=== PATIENT | female | born 1935 | race Caucasian/White ===

== ENCOUNTER → 2017-06-23 | Outpatient (CLI) | payer MEDICARE, OTHER ==
[~2017-06-23] MED LIST: AZIT250 PO; CALGLU500 PO; DULERA 200 MCG/13 GM INH; FLUSAL1005 IH; FLUSAL2505 IH; GUAI600T33 PO; HORMONE REPLACEMENT; HYDCHL12.5 PO; LISI20 PO; MULVITMINF PO; NICO14TP TOP; ONDA4 PO; ONDA8ODT MM; OXYACE5T PO; PRED10 PO; PROG100 PO; RXONDA4ODT MM; SPIHYD PO; TIOT18 INH; [UNRECOGNIZED DRUG - CODE] PO
== END | disposition home or self-care (01) ==
LOC: PLD 13:35 → LAB SHORT 13:35
DX: D48.5 Neoplasm of uncertain behavior of skin (principal)
CPT/HCPCS: 88305

== ENCOUNTER 2019-12-12 06:52 | Day surgery (SDC) | payer MEDICARE, OTHER ==
[~2019-12-12] VITALS: Ht 165.1 cm; Wt 92.5 kg
[2019-12-12] MEDS ORDERED: Ventolin/Prove6.7 GM INH (07:41)
[2019-12-12] MEDS ORDERED: ASPIR 8181 M1 PO (07:41)
[2019-12-12] MEDS ORDERED: FISH OIL 1,2001 EAC1 PO (07:42)
[2019-12-12] MEDS ORDERED: PRESERVISION A1 EACH PO (07:43)
== END 2019-12-12 08:46 | disposition home or self-care (01) ==
LOC: ORSCSDS 06:52
PROVIDERS: Ophthalmology
PROC: 08RJ3JZ Replacement of Right Lens with Synthetic Substitute, Percutaneous Approach (ICD-10-PCS; principal; 2019-12-12 08:00)
DX: H25.11 Age-related nuclear cataract, right eye (principal); I10 Essential (primary) hypertension; I25.10 Atherosclerotic heart disease of native coronary artery without angina pectoris; Z79.899 Other long term (current) drug therapy; E66.9 Obesity, unspecified; Z68.33 Body mass index [BMI] 33.0-33.9, adult
CPT/HCPCS: J2250; J3010; J7040; J7120; V2632

== ENCOUNTER → 2022-05-13 | Outpatient (CLI) | payer MEDICARE, OTHER ==
[~2022-05-13] MED LIST changes: +ASPIR 8181 M1 PO; +FISH OIL 1,2001 EAC1 PO; +ONDA4ODT MM; +PRESERVISION A1 EACH PO; +Ventolin/Prove6.7 GM INH
== END | disposition home or self-care (01) ==
DX: N39.0 Urinary tract infection, site not specified (principal); R10.9 Unspecified abdominal pain

== ENCOUNTER 2022-05-15 03:44 | Inpatient (IN) | payer MEDICARE, OTHER ==
[~2022-05-15] VITALS: Ht 160 cm; Wt 77.1 kg
[~2022-05-15 03:44] MED LIST changes: -ONDA4ODT MM
[2022-05-15 05:56] LABS: BASOPHILS ABSOLUTE AUTO 0.04 K/mm3 (0.00-0.23); BASOPHILS PERCENT AUTO 0 % (0-2); EOSINOPHILS ABSOLUTE AUTO 0.02 K/mm3 (0.00-0.68); EOSINOPHILS PERCENT AUTO 0 % (0-6); Hematocrit 38.8 % (33.0-51.0); IMMATURE GRAN ABSOLUTE AUTO 0.05 K/mm3 (0.00-0.10); IMMATURE GRAN PERCENT AUTO 1 % (0-1); LYMPHOCYTES ABSOLUTE AUTO 0.89 K/mm3 (0.84-5.20); LYMPHOCYTES PERCENT AUTO 9 % (21-46); MONOCYTES ABSOLUTE AUTO 0.86 K/mm3 (0.16-1.47); MONOCYTES PERCENT AUTO 9 % (4-13); Mean Corpuscular HGB 35.2 pg (26.0-34.0); Mean Corpuscular HGB Conc 33.5 g/dL (31.5-36.5); Mean Corpuscular Volume 105 fL (80-100); Mean Platelet Volume 10.4 fL (9.1-12.4); NEUTROPHILS ABSOLUTE AUTO 7.77 K/mm3 (1.96-9.15); NEUTROPHILS PERCENT AUTO 81 % (41-73); Platelet Count 353 K/mm3 (150-400); RDW Coefficient Variation 12.7 % (11.7-14.2); Red Blood Cell Count 3.69 M/mm3 (3.80-5.20); White Blood Cell Count 9.63 K/mm3 (4.00-11.30)
[2022-05-15 06:21] LABS: Albumin, Blood 3.6 g/dL (3.4-5.0); Albumin/Globulin Ratio 1.1 (0.8-1.8); Bilirubin, Total 0.5 mg/dL (0.1-1.0); Bun/Creatinine Ratio 38.3 (12.0-20.0); Calcium, Blood 10.3 mg/dL (8.5-10.1); Creatinine, Blood 1.07 mg/dL (0.40-1.00); Globulin, Blood 3.2 g/dL (2.2-4.0); Potassium, Blood 4.4 mmol/L (3.5-5.5); Total Protein, Blood 6.8 g/dL (6.4-8.2)
[2022-05-15 07:34] LABS: Source, Urine Clean Catch
[2022-05-15 07:41] LABS: Appearance, Urine Clear (Clear); Blood, Urine Neg (Neg); Color, Urine Yellow (P-Yellow); Glucose Qualitative, Urine Neg (Neg); Ketones, Urine 2+ (Neg); Leukocyte Esterase, Urine 1+ (Neg); Nitrite, Urine Neg (Neg); Protein, Urine 1+ (Neg); Specific Gravity, Urine 1.015 (1.003-1.022); Urobilinogen, Urine 1+ (Normal)
[2022-05-15 07:50] LABS: Bilirubin, Urine 1+ (Neg)
[2022-05-15 07:52] LABS: Bacteria Mod /hpf; Red Blood Cells, Urine 0-2 /hpf (0-2); Renal Epithelial Few /hpf (0-Rare); Squamous Epithelial Cells Mod /hpf (Few)
[2022-05-15] MEDS ORDERED: ONDA4ODT MM (13:03)
--- NOTE | 2022-05-15 13:09 | NUR ---
THE PATIENT WAS BROUGHT TO DAY SURGERY FROM THE ER FOR HER PROCEDURE. Surgical site prepped with 2% Chlorhexidine cloth wipe. History, Chart, Medications and Allergies reviewed before start of procedure.Lungs clear T/O to Auscultation. Patient confirms NPO status and agrees with scheduled surgery. Pre-Op teaching done. Pt verbalizes understanding. Patient States Post-Procedure ride home has been arranged.
--- NOTE | 2022-05-15 14:25 | NUR ---
PT RESTING STILL HAS A GRIMACE ON HER FACE, VSS PT GETTING PAINFUL AGAIN AWAITING DR ORTIZ AND DR POOLE
--- NOTE | 2022-05-15 15:32 | NUR ---
05/15/22 1532 Ginny Dumont PATIENT IS ON SCHEDULED ABX
--- NOTE | 2022-05-15 17:22 | NUR ---
PT AWAKE AND ALERT, VITALS STABLE, PT DOES HAVE AN IRREGULAR HEART RATE, DR. ORTIZ NOTIFIED AND HE CAME AND ASSESSED PATIENT. HE REQUESTED THAT THE PATIENT BE SEEN BY HOSPITALIST. THIS NURSE WILL NOTIFY FLOOR NURSE.
--- NOTE | 2022-05-15 19:48 | NUR ---
SHIFT SUMMARY PT ARRIVED TO THE FLOOR FROM PACU AT APPROXIMATELY 1800, POD0 INCARCERATED HERNIA REPAIR, A/OX4, VSS, DENIES PAIN. PT SETTLED IN HER ROOM AND IV ABX STARTED. REPORT GIVEN TO TINA SIMON.
[2022-05-16 04:38] LABS: BASOPHILS ABSOLUTE AUTO 0.03 K/mm3 (0.00-0.23); BASOPHILS PERCENT AUTO 0 % (0-2); EOSINOPHILS PERCENT AUTO 0 % (0-6); Hematocrit 32.2 % (33.0-51.0); Hemoglobin 10.8 g/dL (11.5-16.0); IMMATURE GRAN ABSOLUTE AUTO 0.02 K/mm3 (0.00-0.10); IMMATURE GRAN PERCENT AUTO 0 % (0-1); LYMPHOCYTES ABSOLUTE AUTO 0.89 K/mm3 (0.84-5.20); LYMPHOCYTES PERCENT AUTO 13 % (21-46); MONOCYTES ABSOLUTE AUTO 1.09 K/mm3 (0.16-1.47); MONOCYTES PERCENT AUTO 16 % (4-13); Mean Corpuscular HGB 36.2 pg (26.0-34.0); Mean Corpuscular HGB Conc 33.5 g/dL (31.5-36.5); Mean Corpuscular Volume 108 fL (80-100); Mean Platelet Volume 10.3 fL (9.1-12.4); NEUTROPHILS ABSOLUTE AUTO 4.82 K/mm3 (1.96-9.15); NEUTROPHILS PERCENT AUTO 70 % (41-73); Platelet Count 279 K/mm3 (150-400); RDW Coefficient Variation 13.2 % (11.7-14.2); RDW Standard Deviation 51.9 fL (35.1-46.3); Red Blood Cell Count 2.98 M/mm3 (3.80-5.20); White Blood Cell Count 6.85 K/mm3 (4.00-11.30)
[2022-05-16 04:55] LABS: Bun/Creatinine Ratio 47.6 (12.0-20.0); Calcium, Blood 9.2 mg/dL (8.5-10.1); Creatinine, Blood 1.03 mg/dL (0.40-1.00); Potassium, Blood 4.7 mmol/L (3.5-5.5)
--- NOTE | 2022-05-16 05:33 | NUR ---
SHIFT SUMMARY A/O X4- POD1 INGUINAL HERNIA REPAIR W/ SB RESEC- GAUZE DRESSING ON INCISION C/D/I. VITAL SIGNS STABLE. VOIDING WELL. TOLERATING CLEAR LIQ DIET, NO N/V REPORTED. TELE MONITOR IN PLACE. WILL CONTINUE TO MONITOR AND REPORT TO ONCOMING RN.
--- NOTE | 2022-05-16 16:09 | NUR ---
1450 NOTIFIED BY PCU OF PT HEARTRATE UP TO A FEW SECONDS OF A RATE OF 150. CHECKED PATIENT AND SHE REPORTS BILAT JAW PAIN AND INDIGESTION, STAT EKG COMPLETED WHICH SHOWS A FIBRILLATION. SPOKE WITH DR BREWSTER AND ORDERS RECEIVED
[2022-05-16 16:21] LABS: Creatine Kinase MB 5.6 ng/mL (0.0-3.6); Creatine Kinase MB Index 2.3 (0.0-4.0)
--- NOTE | 2022-05-16 16:35 | NUR ---
1630 ASSISTED TO BR PT GRIMACING WITH MOVEMENT. PT DECLINES OFFER OF PAIN MEDS
--- NOTE | 2022-05-16 17:15 | NUR ---
ANTACID GIVEN FOR INDIGESTION. PT DENIES ANY FURTHER JAW TIGHTNESS OR DISCOMORT. PT REPORTS SHE HAS INDIGESTION OCCASSIONALLY AND WHAT SHE IS EXPERIENCING NOW FEELS THE SAME
--- NOTE | 2022-05-16 17:59 | NUR ---
PT REPORTS HEARTBURN SOMEWHAT BETTER AFTER ANTACID GIVEN. DENIES FUTHER JAW PAIN OR DISCOMFORT. HEART RATE STAYING LESS THAN 100BPM PER TELEMETRY. REMAINS IN A FIB. RLQ ABD DRESSING DRY AND INTACT. PT GRIMACES WITH MOVEMENT, DECLINES OFFERS OF PAIN MEDS. DAILY SMALL AMOUNTS OF FULL LIQUID DIET, AMBULATING TO BR TO VOID. PT REPORTS IS PASSING FLATUS
[2022-05-17 04:44] LABS: BASOPHILS ABSOLUTE AUTO 0.03 K/mm3 (0.00-0.23); BASOPHILS PERCENT AUTO 1 % (0-2); EOSINOPHILS ABSOLUTE AUTO 0.27 K/mm3 (0.00-0.68); EOSINOPHILS PERCENT AUTO 4 % (0-6); Hematocrit 32.4 % (33.0-51.0); Hemoglobin 10.8 g/dL (11.5-16.0); IMMATURE GRAN ABSOLUTE AUTO 0.01 K/mm3 (0.00-0.10); IMMATURE GRAN PERCENT AUTO 0 % (0-1); LYMPHOCYTES ABSOLUTE AUTO 1.72 K/mm3 (0.84-5.20); LYMPHOCYTES PERCENT AUTO 26 % (21-46); MONOCYTES ABSOLUTE AUTO 0.94 K/mm3 (0.16-1.47); MONOCYTES PERCENT AUTO 14 % (4-13); Mean Corpuscular HGB 35.6 pg (26.0-34.0); Mean Corpuscular HGB Conc 33.3 g/dL (31.5-36.5); Mean Corpuscular Volume 107 fL (80-100); Mean Platelet Volume 10.1 fL (9.1-12.4); NEUTROPHILS ABSOLUTE AUTO 3.62 K/mm3 (1.96-9.15); NEUTROPHILS PERCENT AUTO 55 % (41-73); Platelet Count 281 K/mm3 (150-400); RDW Standard Deviation 50.9 fL (35.1-46.3); Red Blood Cell Count 3.03 M/mm3 (3.80-5.20); White Blood Cell Count 6.59 K/mm3 (4.00-11.30)
[2022-05-17 05:01] LABS: Bun/Creatinine Ratio 58.8 (12.0-20.0); Calcium, Blood 9.1 mg/dL (8.5-10.1); Creatinine, Blood 0.71 mg/dL (0.40-1.00); Potassium, Blood 4.2 mmol/L (3.5-5.5)
--- NOTE | 2022-05-17 05:55 | NUR ---
SHIFT SUMMARY A/O X4 THROUGHOUT SHIFT- POD1 R INGUINAL HERNIA REPAIR W/ SMALL BOWEL RESEC. INCISION IN R GROIN AREA, DRESSING C/D/I, NO PAIN REPORTED THROUGHOUT SHIFT. TELE IN PLACE- WHEN I CALLED TO CONFIRM RYTHYM THIS AM, HUMAN RESOURCES TRAINER REPORTED THAT PT CONVERTED FROM AFIB TO NSR ON 05/16/22 AT APPROX 2050 AND HAS REMAINED NSR THROUGHOUT THE SHIFT. TOLERATING A FULL LIQUID DIET, NO REPORT OF N/V. VOIDING WELL AND PASSING DARK LIQUID STOOL. NO ACUTE CHANGES THROUGHOUT SHIFT, WILL CONTINUE TO MONITOR AND REPORT TO ONCOMING RN.
--- NOTE | 2022-05-17 17:59 | NUR ---
SHIFT SUMMARY PATIENT ALERT AND ORIENTED THROUGHOUT SHIFT. TOLERATING ADA DIET AND LIQUIDS. SBA WITH FWW UP TO BATHROOM, SPENT MOST OF DAY UP IN RECLINER WITH BLE ELEV. RIGHT GROIN SITE WITH GAUZE AND TEGADERM C/D/I. DECLINES NEED FOR PAIN MEDS. ROUTINE ABX IV, OTHERWISE SALINE LOCKED. VOIDING WELL AND BM THIS SHIFT. DIET ADVANCED TO ADA REGULAR FOR DINNER. ABD TENDER WITH MOVEMENT. PLAN TO CONTINUE TO MOBILIZE AND ADVANCE DIET UNTIL READY FOR DISCHARGE.
--- NOTE | 2022-05-18 04:31 | NUR ---
SHIFT SUMMARY NO ACUTE CHANGES THROUGHOUT SHIFT. A/O X4- POD2 R INGUINAL HERNIA REPAIR W/ SB RESECTION- DRESSING C/D/I. TOLERATING REG DIET. VOIDING AND PASSING STOOL. NO PAIN REPORTED THROUGHOUT SHIFT. VITAL SIGNS STABLE. WILL CONTINUE TO MONITOR AND REPORT TO ONCOMING RN.
--- NOTE | 2022-05-18 17:59 | NUR ---
SHIFT SUMMARY PT HAS DONE WELL TODAY. PLEASANT & UPBEAT. UP IN CHAIR T/O DAY. UP EASILY TO USE RESTROOM. PASSING GAS & TOLERATING DIET WELL.
--- NOTE | 2022-05-18 22:16 | NUR ---
CALLED HOSPITALIST AT APPROX 2210 TO INQUIRE ABOUT PT NOT HAVING IV ACCESS W/ HAVING ACTIVE TELE ORDER. RANJIT ORDERED TO DC TELE AT THIS TIME.
--- NOTE | 2022-05-19 06:00 | NUR ---
SHIFT SUMMARY A/O X4- SBA TO BATHROOM. POD3 R HERNIA REPAIR W/ SMALL BOWEL RESECTION- DRESSING REMAINS C/D/I. VOIDING AND PASSING STOOL. TOLERATED PO INTAKE. NO REPORT OF PAIN THROUGHOUT SHIFT. VITAL SIGNS STABLE. WILL CONTINUE TO MONITOR AND REPORT TO ONCOMING RN.
[2022-05-19 08:08] LABS: BASOPHILS ABSOLUTE AUTO 0.03 K/mm3 (0.00-0.23); BASOPHILS PERCENT AUTO 0 % (0-2); EOSINOPHILS PERCENT AUTO 7 % (0-6); Hemoglobin 11.7 g/dL (11.5-16.0); IMMATURE GRAN ABSOLUTE AUTO 0.06 K/mm3 (0.00-0.10); IMMATURE GRAN PERCENT AUTO 1 % (0-1); LYMPHOCYTES PERCENT AUTO 32 % (21-46); MONOCYTES ABSOLUTE AUTO 0.63 K/mm3 (0.16-1.47); MONOCYTES PERCENT AUTO 9 % (4-13); Mean Corpuscular HGB 34.6 pg (26.0-34.0); Mean Corpuscular HGB Conc 32.5 g/dL (31.5-36.5); Mean Corpuscular Volume 107 fL (80-100); Mean Platelet Volume 10.2 fL (9.1-12.4); NEUTROPHILS ABSOLUTE AUTO 3.63 K/mm3 (1.96-9.15); NEUTROPHILS PERCENT AUTO 51 % (41-73); Platelet Count 303 K/mm3 (150-400); RDW Coefficient Variation 12.8 % (11.7-14.2); RDW Standard Deviation 50.3 fL (35.1-46.3); Red Blood Cell Count 3.38 M/mm3 (3.80-5.20); White Blood Cell Count 7.15 K/mm3 (4.00-11.30)
[2022-05-19 08:30] LABS: Albumin, Blood 2.9 g/dL (3.4-5.0); Bilirubin, Total 0.3 mg/dL (0.1-1.0); Bun/Creatinine Ratio 34.5 (12.0-20.0); Calcium, Blood 9.4 mg/dL (8.5-10.1); Creatinine, Blood 0.52 mg/dL (0.40-1.00); Globulin, Blood 2.9 g/dL (2.2-4.0); Potassium, Blood 4.1 mmol/L (3.5-5.5); Total Protein, Blood 5.8 g/dL (6.4-8.2)
--- NOTE | 2022-05-19 13:45 | NUR ---
DISCHARGE ESCORTED OUT VIA WC. DENIES PAIN. TOLERATING DIET. PASSING GAS. AMBULATING WELL. NO NEW SCRIPTS; CONFIRMED w/ DR CUETO. HAPPY TO BE DC'ING HOME w/ FRIEND TO STAY THE NIGHT.
== END 2022-05-19 13:25 | disposition home or self-care (01) | DRG 330 ==
LOC: ER 03:44 → SURS 09:02 → ERHOLD 09:02 → SURS 17:56
PROVIDERS: Family Medicine; Student in an Organized Health Care Education/Training Program; Surgery; ADMIT Hospitalist
PROC: 0YQ70ZZ Repair Right Femoral Region, Open Approach (ICD-10-PCS; principal; 2022-05-15 15:00)
PROC: 0DB80ZZ Excision of Small Intestine, Open Approach (ICD-10-PCS; 2022-05-15 15:00)
DX: K41.30 Unilateral femoral hernia, with obstruction, without gangrene, not specified as recurrent (principal); D62 Acute posthemorrhagic anemia; N17.9 Acute kidney failure, unspecified; N39.0 Urinary tract infection, site not specified; N94.9 Unspecified condition associated with female genital organs and menstrual cycle; I10 Essential (primary) hypertension; J44.9 Chronic obstructive pulmonary disease, unspecified; E78.5 Hyperlipidemia, unspecified; G20 Parkinson's disease; Z79.82 Long term (current) use of aspirin; Z79.899 Other long term (current) drug therapy; Z96.653 Presence of artificial knee joint, bilateral; Z90.49 Acquired absence of other specified parts of digestive tract; Z98.890 Other specified postprocedural states; E55.9 Vitamin D deficiency, unspecified; Z28.21 Immunization not carried out because of patient refusal; B96.20 Unspecified Escherichia coli [E. coli] as the cause of diseases classified elsewhere
CPT/HCPCS: 36415; 74018; 74177; 80048; 80053; 81001; 82550; 82553; 82947; 83690; 84484; 85025; 87086; 88307; 93005; 93010; 94640; 94664; 94760; A9270; C1781; J0330; J0696; J1100; J1160; J1170; J1650; J1885; J2405; J2704; J2710; J2795; J3010; J7030; J7120; Q9967

== ENCOUNTER 2023-01-28 08:50 | Emergency (ER) | payer MEDICARE, OTHER ==
[~2023-01-28] VITALS: Ht 160 cm; Wt 68.0 kg
[~2023-01-28 08:50] MED LIST changes: +ONDA4ODT MM
[2023-01-28 09:07] VITALS: BP 132/47
[2023-01-28] MEDS ORDERED: PROG100 PO (09:24)
[2023-01-28] MEDS ORDERED: CARBIDOPA-LEVO1 EA15 PO (09:24)
[2023-01-28] MEDS ORDERED: CLIMARA1 EACH TOP (09:24)
[2023-01-28] MEDS ORDERED: CELE100 PO (09:25)
[2023-01-28] MEDS ORDERED: METOPROLOL SUCC25 MG PO (09:25)
== END 2023-01-28 10:41 | disposition home or self-care (01) ==
LOC: ER 08:50
DX: M25.551 Pain in right hip (principal); W06.XXXA Fall from bed, initial encounter; Z88.8 Allergy status to other drugs, medicaments and biological substances; Z79.899 Other long term (current) drug therapy; Z79.82 Long term (current) use of aspirin; E78.5 Hyperlipidemia, unspecified; I10 Essential (primary) hypertension; J44.9 Chronic obstructive pulmonary disease, unspecified; M19.90 Unspecified osteoarthritis, unspecified site
CPT/HCPCS: 73502; 99283-25

== ENCOUNTER 2023-07-28 14:57 | Emergency (ER) | payer MEDICARE, OTHER ==
[~2023-07-28] VITALS: Ht 162.6 cm; Wt 70.3 kg
[~2023-07-28 14:57] MED LIST changes: +CARBIDOPA-LEVO1 EA15 PO; +CELE100 PO; +CLIMARA1 EACH TOP; +METOPROLOL SUCC25 MG PO
[2023-07-28 15:03] VITALS: BP 124/74
[2023-07-28] MEDS ORDERED: Ketorolac Tromethamine 30mg Vial IM ONE (17:05)
== END 2023-07-28 17:23 | disposition home or self-care (01) ==
LOC: ER 14:57
DX: M54.50 Low back pain, unspecified (principal); G89.29 Other chronic pain; Z87.891 Personal history of nicotine dependence; I10 Essential (primary) hypertension; G20.A1 Parkinson's disease without dyskinesia, without mention of fluctuations; Z79.82 Long term (current) use of aspirin; Z79.899 Other long term (current) drug therapy; Z88.5 Allergy status to narcotic agent; Z91.048 Other nonmedicinal substance allergy status
CPT/HCPCS: 99282

== ENCOUNTER 2023-08-08 11:13 | Emergency (ER) | payer MEDICARE, OTHER ==
[~2023-08-08] VITALS: Ht 162.6 cm; Wt 70.3 kg
[2023-08-08] MEDS ORDERED: Ondansetron HCl 2 MG / ML 2ML Vial IV ONE (11:35)
[2023-08-08] MEDS ORDERED: Morphine Sulfate 4 MG/1 ML Injection IV ONE (11:35)
[2023-08-08 11:45] LABS: Source, Urine Straight Cath
[2023-08-08 11:48] LABS: Bilirubin, Urine Neg (Neg); Blood, Urine 1+ (Neg); Glucose Qualitative, Urine Neg (Neg); Ketones, Urine 3+ (Neg); Leukocyte Esterase, Urine 2+ (Neg); Nitrite, Urine Neg (Neg); Protein, Urine Neg (Neg); Urobilinogen, Urine NORM (Normal)
[2023-08-08] MEDS ORDERED: Lisinopril2.5 MG (11:50)
[2023-08-08 12:05] LABS: Appearance, Urine Clear (Clear); Color, Urine Yellow (P-Yellow)
[2023-08-08 12:05] LABS: BASOPHILS ABSOLUTE AUTO 0.04 K/mm3 (0.00-0.23); BASOPHILS PERCENT AUTO 1 % (0-2); EOSINOPHILS ABSOLUTE AUTO 0.13 K/mm3 (0.00-0.68); EOSINOPHILS PERCENT AUTO 2 % (0-6); Hemoglobin 12.9 g/dL (11.5-16.0); IMMATURE GRAN ABSOLUTE AUTO 0.03 K/mm3 (0.00-0.10); IMMATURE GRAN PERCENT AUTO 0 % (0-1); LYMPHOCYTES ABSOLUTE AUTO 1.01 K/mm3 (0.84-5.20); LYMPHOCYTES PERCENT AUTO 14 % (21-46); MONOCYTES ABSOLUTE AUTO 0.61 K/mm3 (0.16-1.47); MONOCYTES PERCENT AUTO 9 % (4-13); Mean Corpuscular HGB 34.8 pg (26.0-34.0); Mean Corpuscular HGB Conc 33.1 g/dL (31.5-36.5); Mean Corpuscular Volume 105 fL (80-100); Mean Platelet Volume 10.2 fL (9.1-12.4); NEUTROPHILS ABSOLUTE AUTO 5.36 K/mm3 (1.96-9.15); NEUTROPHILS PERCENT AUTO 75 % (41-73); Platelet Count 310 K/mm3 (150-400); RDW Coefficient Variation 12.6 % (11.7-14.2); RDW Standard Deviation 49.1 fL (35.1-46.3); Red Blood Cell Count 3.71 M/mm3 (3.80-5.20); White Blood Cell Count 7.18 K/mm3 (4.00-11.30)
[2023-08-08 12:10] LABS: Albumin, Blood 3.5 g/dL (3.4-5.0); Albumin/Globulin Ratio 1.1 (0.8-1.8); Bilirubin, Total 0.8 mg/dL (0.1-1.0); Bun/Creatinine Ratio 70.9 (12.0-20.0); Calcium, Blood 10.3 mg/dL (8.5-10.1); Creatinine, Blood 0.51 mg/dL (0.40-1.00); Globulin, Blood 3.1 g/dL (2.2-4.0); Potassium, Blood 3.7 mmol/L (3.5-5.5); Total Protein, Blood 6.6 g/dL (6.4-8.2)
[2023-08-08 12:10] LABS: Bacteria Few /hpf; Red Blood Cells, Urine 0-2 /hpf (0-2); Squamous Epithelial Cells Mod /hpf (Few); Yeast/Fungi Urine Few /hpf
[2023-08-08] MEDS ORDERED: Cephalexin Monohydrate 500 MG Cap PO ONE (13:25)
[2023-08-08] MEDS ORDERED: Levodopa/Carbidopa 100 / 25 MG Tab PO SCH (16:00)
[2023-08-08] MEDS ORDERED: OxyCODONE 5 mg/Acetamin 325 mg TABLET PO ONE (22:55)
[2023-08-08] MEDS ORDERED: Methocarbamol 500 MG Tab PO ONE (23:00)
[2023-08-09] MEDS ORDERED: Acetaminophen 500 MG Tab PO ONE (05:00)
[2023-08-09] MEDS ORDERED: Methocarbamol 500 MG Tab PO ONE (05:00)
[2023-08-09] MEDS ORDERED: Prozac20 MG PO (07:08)
[2023-08-09] MEDS ORDERED: ESTRADIOL0.5 MG PO (08:13)
[2023-08-09] MEDS ORDERED: Cephalexin Monohydrate 500 MG Cap PO SCH (09:00)
[2023-08-09] MEDS ORDERED: Lisinopril 5 MG Tab PO SCH (09:00)
[2023-08-09] MEDS ORDERED: Celecoxib 100 MG Cap PO SCH (09:00)
[2023-08-09] MEDS ORDERED: Aspirin 81 MG TabEC PO SCH (09:00)
[2023-08-09] MEDS ORDERED: Metoprolol Succinate 25 MG TABCR PO SCH (09:00)
[2023-08-09] MEDS ORDERED: TRAM50 PO (11:31)
[2023-08-09 12:27] VITALS: BP 100/51
[2023-08-09] MEDS ORDERED: Acetaminophen 500 MG Tab PO PRN (13:40)
[2023-08-09] MEDS ORDERED: Cephalexin Monohydrate 500 MG Cap PO ONE (15:35)
[2023-08-09] MEDS ORDERED: CEPH500 PO (15:35)
== END 2023-08-09 16:51 | disposition home or self-care (01) ==
LOC: ER 11:13
PROVIDERS: Emergency Medicine
DX: M54.9 Dorsalgia, unspecified (principal); N39.0 Urinary tract infection, site not specified; G20.A1 Parkinson's disease without dyskinesia, without mention of fluctuations; Z60.2 Problems related to living alone; I10 Essential (primary) hypertension; G89.29 Other chronic pain; Z91.81 History of falling; Z88.5 Allergy status to narcotic agent; Z91.048 Other nonmedicinal substance allergy status; Z79.890 Hormone replacement therapy; Z79.899 Other long term (current) drug therapy; Z79.51 Long term (current) use of inhaled steroids; Z79.82 Long term (current) use of aspirin; Z87.891 Personal history of nicotine dependence
CPT/HCPCS: 72100; 72170; 80053; 81001; 85025; 97110; 97161; 97530; 99284-25; A9270; J2270; J2405

== ENCOUNTER → 2024-03-24 | Outpatient (CLI) | payer MEDICARE, OTHER ==
[~2024-03-24] MED LIST changes: +CEPH500 PO; +ESTRADIOL0.5 MG PO; +Lisinopril2.5 MG; +Prozac20 MG PO; +TRAM50 PO
[2024-03-24 13:26] LABS: Source, Urine Voided
[2024-03-24 14:36] LABS: Appearance, Urine Hazy (Clear); Bilirubin, Urine Neg (Neg); Blood, Urine Neg (Neg); Color, Urine Yellow (P-Yellow); Glucose Qualitative, Urine Neg (Neg); Ketones, Urine 1+ (Neg); Leukocyte Esterase, Urine 2+ (Neg); Nitrite, Urine Neg (Neg); Protein, Urine Neg (Neg); Specific Gravity, Urine 1.015 (1.003-1.022); Urobilinogen, Urine NORM (Normal); pH, Urine 6.5 (5.0-8.0)
[2024-03-24 15:14] LABS: Amorphous Light (0-Heavy); Bacteria Many /hpf; Calcium Oxalate Crystals Few /hpf; Mucus Light (0-Heavy); Red Blood Cells, Urine 0-2 /hpf (0-2); Squamous Epithelial Cells Many /hpf (Few)
== END ==
LOC: LAB 13:24 → LAB SHORT 13:24
PROVIDERS: Family Medicine
DX: N39.0 Urinary tract infection, site not specified (principal)
CPT/HCPCS: 81001; 87086

== ENCOUNTER → 2024-04-17 | Outpatient (CLI) | payer MEDICARE, OTHER ==
[2024-04-17 13:57] LABS: Source, Urine Clean Catch
[2024-04-17 15:14] LABS: Appearance, Urine Cloudy (Clear); Bilirubin, Urine Neg (Neg); Blood, Urine 1+ (Neg); Color, Urine Amber (P-Yellow); Glucose Qualitative, Urine Neg (Neg); Ketones, Urine 2+ (Neg); Leukocyte Esterase, Urine Neg (Neg); Nitrite, Urine Neg (Neg); Protein, Urine 1+ (Neg); Specific Gravity, Urine 1.025 (1.003-1.022); Urobilinogen, Urine 1+ (Normal)
[2024-04-17 15:45] LABS: Amorphous Heavy (0-Heavy); Bacteria Rare /hpf; Squamous Epithelial Cells Few /hpf (Few); White Blood Cells, Urine 0-2 /hpf (0-5)
== END ==
LOC: LAB SHORT 12:40 → LAB 12:40
PROVIDERS: Family Medicine
DX: R30.0 Dysuria (principal)
CPT/HCPCS: 81001

== ENCOUNTER → 2024-05-25 | Outpatient (CLI) | payer MEDICARE, OTHER | LOC: LAB SHORT 14:20 → LAB 14:20 | DX: N39.0 Urinary tract infection, site not specified (principal) | CPT/HCPCS: 87077; 87086; 87186 ==

== ENCOUNTER → 2024-06-09 | Outpatient (CLI) | payer MEDICARE, OTHER ==
[2024-06-09 11:06] LABS: Source, Urine Voided
[2024-06-09 14:05] LABS: Appearance, Urine Hazy (Clear); Bilirubin, Urine Neg (Neg); Blood, Urine 1+ (Neg); Color, Urine Yellow (P-Yellow); Glucose Qualitative, Urine Neg (Neg); Ketones, Urine 1+ (Neg); Leukocyte Esterase, Urine 2+ (Neg); Nitrite, Urine Neg (Neg); Protein, Urine 1+ (Neg); Urobilinogen, Urine 1+ (Normal)
[2024-06-09 14:28] LABS: Amorphous Light (0-Heavy); Bacteria Many /hpf; Calcium Oxalate Crystals Mod /hpf; Mucus Heavy (0-Heavy); Red Blood Cells, Urine 0-2 /hpf (0-2); Squamous Epithelial Cells Many /hpf (Few)
== END | disposition home or self-care (01) ==
LOC: LAB 11:03 → LAB SHORT 11:03
PROVIDERS: Family Medicine
DX: R39.9 Unspecified symptoms and signs involving the genitourinary system (principal)
CPT/HCPCS: 81001; 87086

== ENCOUNTER → 2024-08-08 | Outpatient (CLI) | payer MEDICARE, OTHER ==
[2024-08-08 16:48] LABS: Source, Urine Voided
[2024-08-08 17:57] LABS: Appearance, Urine Hazy (Clear); Bilirubin, Urine Neg (Neg); Blood, Urine Neg (Neg); Color, Urine Yellow (P-Yellow); Glucose Qualitative, Urine Neg (Neg); Ketones, Urine 1+ (Neg); Leukocyte Esterase, Urine 2+ (Neg); Nitrite, Urine Neg (Neg); Protein, Urine Neg (Neg); Urobilinogen, Urine NORM (Normal)
[2024-08-08 18:15] LABS: Red Blood Cells, Urine 0-2 /hpf (0-2); Squamous Epithelial Cells Few /hpf (Few); Yeast/Fungi Urine Mod /hpf
[2024-08-08 18:16] LABS: Bacteria Mod /hpf; Calcium Oxalate Crystals Mod /hpf
== END ==
LOC: LAB 16:46 → LAB SHORT 16:46
PROVIDERS: Family Medicine
DX: N39.0 Urinary tract infection, site not specified (principal)
CPT/HCPCS: 81001; 87086

== ENCOUNTER 2024-08-20 11:00 | Emergency (ER) | payer MEDICARE, OTHER ==
[~2024-08-20] VITALS: Ht 162.6 cm; Wt 68.0 kg
[2024-08-20 11:50] LABS: Source, Urine Clean Catch
[2024-08-20 11:53] LABS: BASOPHILS ABSOLUTE AUTO 0.05 K/mm3 (0.00-0.23); BASOPHILS PERCENT AUTO 1 % (0-2); EOSINOPHILS ABSOLUTE AUTO 0.22 K/mm3 (0.00-0.68); EOSINOPHILS PERCENT AUTO 4 % (0-6); Hematocrit 38.7 % (33.0-51.0); Hemoglobin 13.1 g/dL (11.5-16.0); IMMATURE GRAN ABSOLUTE AUTO 0.01 K/mm3 (0.00-0.10); IMMATURE GRAN PERCENT AUTO 0 % (0-1); LYMPHOCYTES ABSOLUTE AUTO 2.06 K/mm3 (0.84-5.20); LYMPHOCYTES PERCENT AUTO 36 % (21-46); MONOCYTES ABSOLUTE AUTO 0.55 K/mm3 (0.16-1.47); MONOCYTES PERCENT AUTO 10 % (4-13); Mean Corpuscular HGB 35.5 pg (26.0-34.0); Mean Corpuscular HGB Conc 33.9 g/dL (31.5-36.5); Mean Corpuscular Volume 105 fL (80-100); Mean Platelet Volume 10.1 fL (9.1-12.4); NEUTROPHILS ABSOLUTE AUTO 2.84 K/mm3 (1.96-9.15); NEUTROPHILS PERCENT AUTO 50 % (41-73); Platelet Count 280 K/mm3 (150-400); RDW Coefficient Variation 12.7 % (11.7-14.2); Red Blood Cell Count 3.69 M/mm3 (3.80-5.20); White Blood Cell Count 5.73 K/mm3 (4.00-11.30)
[2024-08-20 12:08] LABS: Albumin, Blood 3.4 g/dL (3.4-5.0); Albumin/Globulin Ratio 1.3 (0.8-1.8); Bun/Creatinine Ratio 43.3 (12.0-20.0); Calcium, Blood 9.6 mg/dL (8.5-10.1); Creatinine, Blood 0.55 mg/dL (0.40-1.00); Globulin, Blood 2.7 g/dL (2.2-4.0); Potassium, Blood 4.2 mmol/L (3.5-5.5); Total Protein, Blood 6.1 g/dL (6.4-8.2)
[2024-08-20 12:25] LABS: Appearance, Urine Cloudy (Clear); Bilirubin, Urine Neg (Neg); Blood, Urine 1+ (Neg); Color, Urine Yellow (P-Yellow); Glucose Qualitative, Urine Neg (Neg); Ketones, Urine Neg (Neg); Leukocyte Esterase, Urine 3+ (Neg); Nitrite, Urine Neg (Neg); Protein, Urine Neg (Neg); Specific Gravity, Urine 1.015 (1.003-1.022); Urobilinogen, Urine 1+ (Normal)
[2024-08-20 13:08] LABS: Hyaline Casts 0-2 /lpf (0-2)
[2024-08-20 13:09] LABS: White Blood Cells, Urine 25-50 /hpf (0-5); Yeast/Fungi Urine Many /hpf
[2024-08-20 13:10] LABS: Amorphous Light (0-Heavy); Bacteria Many /hpf; Calcium Oxalate Crystals Few /hpf; Mucus Mod (0-Heavy); Squamous Epithelial Cells Many /hpf (Few)
[2024-08-20] MEDS ORDERED: Cephalexin Monohydrate 500 MG Cap PO ONE (16:15)
[2024-08-20] MEDS ORDERED: CEPH500 PO (16:27)
[2024-08-20 16:33] VITALS: BP 144/50
== END 2024-08-20 16:44 | disposition home or self-care (01) ==
LOC: ER 11:00
PROVIDERS: Emergency Medicine
DX: N39.0 Urinary tract infection, site not specified (principal); Z91.048 Other nonmedicinal substance allergy status; Z79.899 Other long term (current) drug therapy; Z79.82 Long term (current) use of aspirin; Z79.2 Long term (current) use of antibiotics; Z79.891 Long term (current) use of opiate analgesic; I10 Essential (primary) hypertension; Z87.891 Personal history of nicotine dependence
CPT/HCPCS: 80053; 81001; 85025; 87086; 93005; 93010; 99285-25; A9270

== ENCOUNTER 2024-10-25 10:09 | Inpatient (IN) | payer MEDICARE, OTHER ==
[~2024-10-25] VITALS: Ht 162.6 cm; Wt 69.0 kg
[2024-10-25] MEDS ORDERED: Levodopa/Carbidopa 100 / 25 MG Tab PO ONE (10:55)
[2024-10-25 11:20] LABS: BASOPHILS ABSOLUTE AUTO 0.04 K/mm3 (0.00-0.23); BASOPHILS PERCENT AUTO 0 % (0-2); EOSINOPHILS ABSOLUTE AUTO 0.01 K/mm3 (0.00-0.68); EOSINOPHILS PERCENT AUTO 0 % (0-6); Hematocrit 34.7 % (33.0-51.0); Hemoglobin 11.7 g/dL (11.5-16.0); IMMATURE GRAN ABSOLUTE AUTO 0.06 K/mm3 (0.00-0.10); IMMATURE GRAN PERCENT AUTO 1 % (0-1); LYMPHOCYTES ABSOLUTE AUTO 0.89 K/mm3 (0.84-5.20); LYMPHOCYTES PERCENT AUTO 8 % (21-46); MONOCYTES PERCENT AUTO 7 % (4-13); Mean Corpuscular HGB Conc 33.7 g/dL (31.5-36.5); Mean Corpuscular Volume 104 fL (80-100); Mean Platelet Volume 9.4 fL (9.1-12.4); NEUTROPHILS ABSOLUTE AUTO 9.04 K/mm3 (1.96-9.15); NEUTROPHILS PERCENT AUTO 83 % (41-73); Platelet Count 308 K/mm3 (150-400); RDW Coefficient Variation 12.5 % (11.7-14.2); RDW Standard Deviation 48.1 fL (35.1-46.3); Red Blood Cell Count 3.34 M/mm3 (3.80-5.20); White Blood Cell Count 10.84 K/mm3 (4.00-11.30)
[2024-10-25 11:41] LABS: Albumin, Blood 3.3 g/dL (3.4-5.0); Albumin/Globulin Ratio 1.1 (0.8-1.8); Bilirubin, Total 0.7 mg/dL (0.1-1.0); Calcium, Blood 9.6 mg/dL (8.5-10.1); Creatinine, Blood 0.5 mg/dL (0.40-1.00); Potassium, Blood 3.8 mmol/L (3.5-5.5); Total Protein, Blood 6.3 g/dL (6.4-8.2)
[2024-10-25] MEDS ORDERED: Azithromycin 500 MG in NS 250 ML IV ONE (11:55)
[2024-10-25] MEDS ORDERED: CefTRIAXone Sodium 1,000 MG in NS 100 ML IV ONE (11:55)
[2024-10-25] MEDS ORDERED: Aspirin 325 MG Tab PO ONE (12:05)
[2024-10-25 13:22] LABS: Source, Urine Straight Cath
[2024-10-25 13:27] LABS: Appearance, Urine Clear (Clear); Blood, Urine 1+ (Neg); Color, Urine Yellow (P-Yellow); Glucose Qualitative, Urine Neg (Neg); Ketones, Urine 3+ (Neg); Leukocyte Esterase, Urine Neg (Neg); Nitrite, Urine Neg (Neg); Protein, Urine 2+ (Neg); Urobilinogen, Urine 1+ (Normal)
[2024-10-25 13:34] LABS: Bilirubin, Urine 1+ (Neg)
[2024-10-25 13:35] LABS: Amorphous Light (0-Heavy); Bacteria Few /hpf; Squamous Epithelial Cells Mod /hpf (Few)
[2024-10-25 13:36] LABS: Hyaline Casts 0-2 /lpf (0-2)
[2024-10-25 13:41] LABS: International Normalized Ratio 1.12; Prothrombin Time Results 11.9 Sec (9.7-11.5)
[2024-10-25] MEDS ORDERED: Acetaminophen 500 MG Tab PO ONE (13:55)
[2024-10-25] MEDS ORDERED: Furosemide 10 MG/ML 4ML Vial IV ONE (15:00)
[2024-10-25] MEDS ORDERED: Heparin Sodium,Porcine/0.5 NS 500 ML IV SCH (15:10)
[2024-10-25] MEDS ORDERED: CETI5 PO (15:30)
[2024-10-25] MEDS ORDERED: AZELASTINE137 MCG/01 (15:31)
[2024-10-25] MEDS ORDERED: OMEGA-3 KRILL1 EAC3 PO (15:32)
[2024-10-25] MEDS ORDERED: MULVITA PO (15:33)
[2024-10-25] MEDS ORDERED: KLAYESTA15 GM TOP (15:34)
[2024-10-25] MEDS ORDERED: Preservision S1 EACH PO (15:34)
[2024-10-25] MEDS ORDERED: VITAMIN D350 MC3 PO (15:36)
[2024-10-25] MEDS ORDERED: CODACE30 PO (15:36)
[2024-10-25] MEDS ORDERED: Heparin Sodium 5000 Units/ML 1ML MDV IV ONE (15:40)
[2024-10-25 15:52] LABS: Influenza A, PCR NEGATIVE (NEGATIVE); Influenza B, PCR NEGATIVE (NEGATIVE); Resp Syncytial Virus, PCR NEGATIVE (NEGATIVE); SARS-Cov-2 (COVID-19) PCR, MMC NEGATIVE (NEGATIVE)
[2024-10-25 17:08] VITALS: BP 128/58
[2024-10-25 17:09] LABS: CHOL/HDL RATIO 2.3; Cholesterol 131 mg/dL (50-200); HDL Cholesterol 58 mg/dL (>39); Low Density Lipoprotein Chol 60 mg/dL (0-110); Triglycerides 63 mg/dL (30-160); Very Low Density Lipoprot Chol 12 mg/dL (6-32)
[2024-10-25] MEDS ORDERED: Albuterol 2.5 MG/3 ML VIAL INH PRN (17:30)
[2024-10-25] MEDS ORDERED: Ampicillin Sod/Sulbactam Sod 3 GM in NS 100 ML IV SCH (18:00)
[2024-10-25] MEDS ORDERED: Acetaminophen 325 MG TABLET PO PRN (18:55)
[2024-10-25] MEDS ORDERED: PREG75 PO (18:57)
[2024-10-25] MEDS ORDERED: METO25ER PO (18:57)
[2024-10-25] MEDS ORDERED: TRIM100 PO (18:58)
[2024-10-25 20:43] VITALS: BP 134/53
[2024-10-25] MEDS ORDERED: Levodopa/Carbidopa 100 / 25 MG Tab PO SCH ×2 (21:00→22:00)
[2024-10-25] MEDS ORDERED: Miconazole Nitrate 2% 85 GM PWD TOP SCH (21:00)
[2024-10-25] MEDS ORDERED: Cholecalciferol 1000 Unit Tablet (=25MCG) PO SCH (21:00)
[2024-10-25 23:42] VITALS: BP 115/46
[2024-10-25] MEDS ORDERED: Clarify Drug Order XX ONE (23:50)
[2024-10-26] VITALS (7 sets, daily range): BP systolic 104–144; BP diastolic 48–92
--- NOTE | 2024-10-26 03:00 | NUR ---
ADMISSION NOTE REPORT RECEIVED FROM ED NURSE. PT STOOD AND TRANSFERRED TO BED WITH MINIMAL ASSISTANCE. PT A/OX4, ABLE TO MAKE NEEDS KNOWN AND FOLLOW COMMANDS. PT REPORTS 7/10 CHEST PRESSURE THAT RADIATES TO HER BACK. BP HYPERTENSIVE. ON TELE, SR 95 BPM, BUT INCREASES TO SINUS TACHYCARDIA IN 110S. SPO2 >92% ON RA. PT REPORTS SHE IS CURRENTLY UNDERGOING CHEMOTHERAPY FOR LUNG CA, NO O2 USE AT BASELINE. HEPARIN INFUSING PER EMAR. MD AWARE OF CHEST PAIN, MEDICATING PER EMAR. TRENDING TROPONINS. BED IN LOWEST POSITION, CALL LIGHT IN REACH.
[2024-10-26 05:25] LABS: BASOPHILS ABSOLUTE AUTO 0.06 K/mm3 (0.00-0.23); BASOPHILS PERCENT AUTO 1 % (0-2); EOSINOPHILS ABSOLUTE AUTO 0.24 K/mm3 (0.00-0.68); EOSINOPHILS PERCENT AUTO 2 % (0-6); Hematocrit 31.5 % (33.0-51.0); Hemoglobin 10.4 g/dL (11.5-16.0); IMMATURE GRAN PERCENT AUTO 1 % (0-1); LYMPHOCYTES ABSOLUTE AUTO 1.89 K/mm3 (0.84-5.20); LYMPHOCYTES PERCENT AUTO 17 % (21-46); MONOCYTES ABSOLUTE AUTO 1.18 K/mm3 (0.16-1.47); MONOCYTES PERCENT AUTO 10 % (4-13); Mean Corpuscular HGB 35.4 pg (26.0-34.0); Mean Corpuscular Volume 107 fL (80-100); Mean Platelet Volume 9.5 fL (9.1-12.4); NEUTROPHILS ABSOLUTE AUTO 7.96 K/mm3 (1.96-9.15); NEUTROPHILS PERCENT AUTO 70 % (41-73); Platelet Count 271 K/mm3 (150-400); RDW Coefficient Variation 12.7 % (11.7-14.2); Red Blood Cell Count 2.94 M/mm3 (3.80-5.20); White Blood Cell Count 11.43 K/mm3 (4.00-11.30)
[2024-10-26 05:55] LABS: Bun/Creatinine Ratio 50.9 (12.0-20.0); Calcium, Blood 8.8 mg/dL (8.5-10.1); Creatinine, Blood 0.63 mg/dL (0.40-1.00); Potassium, Blood 3.4 mmol/L (3.5-5.5); Thyroid Stimulating Hormone 0.209 uIU/mL (0.360-4.800)
[2024-10-26] MEDS ORDERED: Clarify Drug Order XX ONE (06:15)
--- NOTE | 2024-10-26 06:46 | NUR ---
SHIFT SUMMARY PT A/OX4, ABLE TO MAKE NEEDS KNOWN AND FOLLOWING COMMANDS APPROPRIATELY. BP STABLE, ON TELE, SR 60-70S. SPO2 > 92% ON 2L NC. HEPARIN INFUSING PER EMAR. CALLED IN CARDIOLOGY CONSULT. PT REPORTED BACK PAIN THROUGHOUT SHIFT, MEDICATED PER EMAR. MORAN CATHETER REMOVED AND PUREWICK PLACED CONNECTED TO CONTINUOUS SUCTION. NO URINE OUT, BLADDER SCAN < 200 MLS. PT BEDFAST, REQUIRING ASSISTANCE WITH REPOSITIONING. NO SIGNIFICANT EVENTS THROUGHOUT SHIFT. WILL REPORT TO ONCOMING NURSE.
--- NOTE | 2024-10-26 06:46 | NUR ---
THIS RN HAS REVIEWED LEGAL ASSOCIATE'S DOCUMENTATION AND AGREES.
[2024-10-26] MEDS ORDERED: Atorvastatin 40 MG Tab PO SCH (09:00)
[2024-10-26] MEDS ORDERED: Aspirin 81 MG Chew PO SCH (09:00)
[2024-10-26] MEDS ORDERED: Furosemide 10 MG/ML 4ML Vial IV SCH (09:00)
[2024-10-26] MEDS ORDERED: Beta-Carotene (A) W-C & E/Min 1 Tab PO SCH (09:00)
[2024-10-26] MEDS ORDERED: Potassium Chloride 20 MEQ TabCR PO ONE (10:25)
[2024-10-26] MEDS ORDERED: Loratadine 10 MG Tab PO SCH (11:00)
[2024-10-26] MEDS ORDERED: Peg 400/Hypromellose/Glycerin 15 DROP/ML BTL RIGHTEYE PRN (11:00)
--- NOTE | 2024-10-26 11:44 | NUR ---
THIS RN CALLED DR. OH BECAUSE THE PT CONVERTED FROM SR W/ PAC'S TO AFIB 120'S. DR. SOL STATED SHE WAS GOING TO RESTART SOME OF THE PT'S HOME MEDICATIONS. THIS RN ASKED ABOUT ANY BLOOD THINNERS TO REDUCE RISK OF CVA. DR. SOL STATES SHE WILL FOLLOW UP WITH THE PT TOMORROW. THE PT HAS EXPRESSED SHE DOES NOT WANT TO BE ON ANY BLOOD THINNERS.
[2024-10-26] MEDS ORDERED: Dextran/Hypromellose/Glycerin 15 DROP/ML BTL RIGHTEYE PRN (11:55)
[2024-10-26] MEDS ORDERED: Metoprolol Succinate 25 MG TABCR PO SCH (12:00)
--- NOTE | 2024-10-26 12:18 | NUR ---
PT'S METOPROLOL SUCCINATE 25MG GIVEN TO THE PT. SHE DID CONVERT BACK TO SR W/ PAC'S. PT REMAINS ASYMTOMATIC. SEE NOTES FOR UPDATES.
--- NOTE | 2024-10-26 13:14 | NUR ---
PALLIATIVE CARE VISIT: MET WITH PT AND DAUGHTER IN THE ROOM. PT IS LYING IN BED, O2 VIA MOUTH. PT HAS NG TUBE IN PLCE NO SUVTION AT THIS TIME. PT TO SWITCH TO CLEAR LIQUID DIET. PT C/O 15 PAIN. RN IN TO GIVE NORCO PER AUG. PT REPORTS NORCO HAS BEEN EFFECTIVE IN MANAGING HER PAIN. PT IS A/0 AND ABLE TO PARICIPATE IN MEANINGFUL DISCUSSION. DISCUSSED SYMPTOM MANAGEMENT. DAUGHTER PROVIDES MANY OF THE DETAILS. PT HAS CHRONIC PAIN TO BACK, NECK HANDS AND LEGS. PT HAS RA. FINGERS ARE DISFIGURED FROM ILLNESS. PT DOES NOT UTILIZE HEATING PAD A SOURCE OF COMFORT AT HOME. SUGGESTED TRIALING HERE AND PT AGREEABLE. PT STATES HER FEET ARE ALWAYS GOT BUT HER SHOULDERS AND BACK ARE ALWAYS COLD. HEATING PAD TO GO BEHIND BACK AND TO CYCLE ON/OFF Q20 MINUTES. DISCUSSED BOWEL MANAGEMENT. PT STATES SHE USUALLY HAS A BM DAILY AT HOME. DRINKS PLENTY OF WATER WITH HER MEDICATIONS AND THROUGHOUT THE DAY. PT AGREEABLE TO TRYING PRUNE JUICE COCKTAIL HERE AND ENCOURAGED USE OF PRUNE JUICE MORE FREQUENTLY AT HOME. PT REPORTS SHE CURRENTLY FEELS LIKE SHE HAS HARD STOOL IN RECTAL CAVITY BUT CAN'T PUSH IT OUT. PRIMARY RN AWARE AND WILL REQUEST PRUNE JUICE TO BE GIVEN. DISCUSSED URINARY FREQUENCY AND RETENTION. PT TAKES DAILY LOW DOSE ABX DUE TO HISTORY OF BLADDER SLING THAT FAILED AND FREQUENT UTI'S WHICH SHE STATES HAS PREVENTED MANY UTI'S. PT HAS NEVER TRIED FLOMAX OR OTHER MEDICATION FOR RETENTION. PT TAKES D-MANNOS DAILY IN HER COFFEE ALSO TO PREVENT UTI'S. NOTIFIED PRIMARY RN OF RECOMMENDATIONS FOR SYMPTOM MANAGEMENT. PRIMARY RN INDICATED HE WOULD NOTIFY .
--- NOTE | 2024-10-26 14:53 | NUR ---
THE PT CONTINUES TO CONVERT BETWEEN SR/AFIB/AFLUTTER. HR 80'S-140'S. DR. SOL NOTIFIED AND STATED TO CONTINUE CARDIAC MONITORING.
--- NOTE | 2024-10-26 17:29 | NUR ---
RECEIVED REPORT FROM SN [facility] FOR TRANSFER TO [facility].
--- NOTE | 2024-10-26 17:46 | NUR ---
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 PT HAS RT FACIAL DROOPING AND RIGHT EYELID STAYED SHUT MAJORITY OF THE SHIFT. PT VERBAL RESPONSE TO QUESTIONS ARE APPROPRIATE. AT START OF SHIFT PT WAS SR W/ PACS, AT 1030 SHE CONVERTED TO AFIB W/ RVR, THEN PT INTERMITTENTLY IN AFIB, SR, AFLUTTER 80'S - 140'S. NOW SUSTAINING SR 50'S-70'S. PROVIDER AWARE .SEE PREVIOUS NOTES. AT START OF SHIFT PT WAS ON 5LO2 VIA NC AND MAINTAINED 100% O2 SATURATION. TITRATED T/O THE MORNING TO RA. ON RA SHE DROPPED TO 88%. PLACED PT ON 1L VIA NC MAINTAINING O2 SATURATION AT >93%. PT CONTINUES TO HAVE A NONPRODUCTIVE WET COUGH. PT CONTINUES TO HAVE EXPIRATORY WHEEZE AND CRACKLES OF LLL AND RML. EXPIRATORY WHEEZE IDENTIFIED ON AUSCULTATION OF BUL. RLL CLEAR AND DIMINISHED. PT IS INCONTINENT OF BOWEL AND BLADDER WITH PUREWICK AND BRIEFS IN PLACE. KNOWN RASH NOTED IN LEFT GROIN. FOAM HEEL BOOTIES APPLIED TO BILATERAL HEELS FOR PREVENTION. SCD'S APPLIED BILATERALLY PER ORDERS. AT BASELINE PT IS USES FWW/WHEEL CHAIR. ECHO, CARDIOLOGY, AND SPEECH CONSULTATION COMPLETED TODAY 10/26/2024. PT TRANSFERED TO [facility]. REPORT CALLED TO SHANIQUA SIMON. PT'S SISTER VINH WAS AT BEDSIDE AND UPDATED ON CARE. HER BROTHER WAS AT BEDSIDE DURING THE TRANSFER TO MEDICAL FLOOR AND WAS UPDATED ON CARE. ALL BELONGINGS SENT WITH THE PT. NO FURTHER NOTES FROM THIS STUDENT NURSE.
--- NOTE | 2024-10-26 18:03 | NUR ---
ASSUMED CARE OF PATIENT. 1LPM/NC. AC LOTT AND SCDs PLACED. RIGHT SHOULDER WEAKNESS/FLACCIDITY SECONDARY TO IVERSON'S PALSEY. ACCOMPANIED BY SON, ROBERT.
--- NOTE | 2024-10-26 19:12 | NUR ---
END OF SHIFT SUMMARY: A&Ox4. PLEASANT AND COOPERATIVE WITH CARE. CALLS APPROPRIATELY AND IS ABLE TO ADVOCATE NEEDS EFFECTIVELY. INCONTINENT OF BOWEL AND BLADDER c PUREWICK IN PLACE; LBM TODAY. AMBULATES c FWW. MEDS WHOLE c FLUIDS [id number]-[id number]-TIME. NO C/O PAIN. TELE SINUS c INTERMITTENT A-FIB/A-FLUTTER. BED IN LOWEST POSITION, CALL LIGHT WITHIN REACH, ALL NEEDS MET. REPORT TO ONCOMING NURSE. SPEED WINDER DOCUMENTATION REVIEW: THIS RN HAS PERSONALLY REVIEWED DOCUMENTATION BY STUDENT NURSE. ALL CONTROLLED SUBSTANCES GIVEN BY AND APPROPRIATE IV PUSHES DIRECTLY OBSERVED BY THIS RN.
[2024-10-26] MEDS ORDERED: Lactobacil 2-S.Thermo-Bifido 1 1 Cap PO SCH (21:00)
[2024-10-26] MEDS ORDERED: NS 250 ML IV PRN (23:45)
[2024-10-27 04:09] VITALS: BP 128/52
--- NOTE | 2024-10-27 04:29 | NUR ---
SHIFT SUMMARY ADMIT 10/25/24 FOR TYPE 2 NSTEMI, NEW CHF WITH EF 74%, NEW PAROXYSMAL A-FIB, BRONCHIECTASIS +/- ASPIRATION PNA. FULL CODE. RECEIVING IV UNASYN TID VIA RFA IV. HX BELLS PALSY AFFECTING R FACE. ALSO CHRONIC R SHOULDER PAIN/WEAKNESS. 1-2 PERSON ASSIST WITH FWW, OR WHEELCHAIR. INCONTINENT OF URINE ON PUREWICK. <500 CC URINE OUTPUT OVERNIGHT. BLADDER SCAN SHOWED 82 CC. TEMP OF 99.9 F AFTER 650 MG TYLENOL THIS EVENING. TELEMETRY: NSR AT 69 BPM. A&OX4. MAINTAINING >92% ON 1L NC. BASELINE IS RA. BLOOD CULTURES X2 ARE NEG AFTER 1 DAY. NEED SPUTUM CULTURE. NO PE SEEN ON CT PE STUDY 10/26/24. PROVIDER TO DISCUSS OPTION FOR STARTING DOAC 10/27/24. IF IMPROVING, PT WILL RETURN TO HOME AT [facility].
[2024-10-27 05:15] LABS: BASOPHILS ABSOLUTE AUTO 0.04 K/mm3 (0.00-0.23); BASOPHILS PERCENT AUTO 0 % (0-2); EOSINOPHILS ABSOLUTE AUTO 0.42 K/mm3 (0.00-0.68); EOSINOPHILS PERCENT AUTO 4 % (0-6); Hematocrit 31.6 % (33.0-51.0); Hemoglobin 10.6 g/dL (11.5-16.0); IMMATURE GRAN ABSOLUTE AUTO 0.09 K/mm3 (0.00-0.10); IMMATURE GRAN PERCENT AUTO 1 % (0-1); LYMPHOCYTES ABSOLUTE AUTO 1.76 K/mm3 (0.84-5.20); LYMPHOCYTES PERCENT AUTO 17 % (21-46); MONOCYTES ABSOLUTE AUTO 0.88 K/mm3 (0.16-1.47); MONOCYTES PERCENT AUTO 9 % (4-13); Mean Corpuscular HGB 36.1 pg (26.0-34.0); Mean Corpuscular HGB Conc 33.5 g/dL (31.5-36.5); Mean Corpuscular Volume 108 fL (80-100); Mean Platelet Volume 9.7 fL (9.1-12.4); NEUTROPHILS ABSOLUTE AUTO 6.97 K/mm3 (1.96-9.15); NEUTROPHILS PERCENT AUTO 69 % (41-73); Platelet Count 285 K/mm3 (150-400); RDW Coefficient Variation 12.9 % (11.7-14.2); RDW Standard Deviation 50.4 fL (35.1-46.3); Red Blood Cell Count 2.94 M/mm3 (3.80-5.20); White Blood Cell Count 10.16 K/mm3 (4.00-11.30)
[2024-10-27 05:46] LABS: Bun/Creatinine Ratio 70.7 (12.0-20.0); Calcium, Blood 8.9 mg/dL (8.5-10.1); Creatinine, Blood 0.4 mg/dL (0.40-1.00); Free Thyroxine 1.21 ng/dL (0.70-1.60); Potassium, Blood 3.2 mmol/L (3.5-5.5); Triiodothyronine, Free 1.23 pg/mL (2.18-3.98)
[2024-10-27 08:51] VITALS: BP 131/57
[2024-10-27] MEDS ORDERED: Potassium Chloride 20 MEQ TabCR PO ONE (09:05)
[2024-10-27 15:43] VITALS: BP 122/63
--- NOTE | 2024-10-27 18:25 | NUR ---
SHIFT SUMMARY NO ACUTE CHANGES, A/Ox4, ABLE TO MAKE NEEDS KNOWN AND USES CALL LIGHT APPROPRIATELY. TREATED FOR PAIN PER EMAR. UP TO CHAIR FOR LUNCH AND PRIOR TO DINNER BREIFLY. 1 ASSIST WITH FWW AND GB. PUREWICK IN PLACE, CHANGED DURING THIS SHIFT. CLEAR YELLOW URINE OUTPUT. BM TODAY. REMAINS ON 1 L/MIN VIA NC. PLAN FOR DISCHARGE TO SNF TOMORROW FOR REHAB. PT CURRENTLY SITTING UP IN BED EATING DINNER, CALL LIGHT WITHIN REACH.
[2024-10-27 20:39] VITALS: BP 125/52
[2024-10-28 03:21] VITALS: BP 158/49
[2024-10-28 06:00] LABS: Bun/Creatinine Ratio 56.5 (12.0-20.0); Calcium, Blood 9.2 mg/dL (8.5-10.1); Creatinine, Blood 0.43 mg/dL (0.40-1.00); Potassium, Blood 3.4 mmol/L (3.5-5.5)
--- NOTE | 2024-10-28 06:29 | NUR ---
SHIFT SUMMARY: Pt is admitted for nstemi and is a DNR. is alert and able to make needs known. ADLs have been mainly 1p but did not get out of bed. Pain was managed with PRN medication. Shaheen noted sinus in the 70s with no events.
[2024-10-28 07:20] VITALS: BP 145/53
[2024-10-28] MEDS ORDERED: Enoxaparin 40 MG/0.4 ML SYR SC SCH (09:00)
[2024-10-28] MEDS ORDERED: Potassium Chloride 20 MEQ TabCR PO ONE (09:45)
[2024-10-28] MEDS ORDERED: ALBU2.5V5 INH (10:17)
[2024-10-28] MEDS ORDERED: ASPI81CH PO (10:18)
[2024-10-28] MEDS ORDERED: ARTIFICIAL TEAR15 M7 RIGHTEYE (10:19)
[2024-10-28] MEDS ORDERED: LORA10ER PO (10:23)
[2024-10-28] MEDS ORDERED: VITAMIN D32000 UNI1 PO (10:23)
[2024-10-28] MEDS ORDERED: AMOCLA875 PO (10:24)
[2024-10-28] MEDS ORDERED: POTCHL20ER PO (10:24)
[2024-10-28] MEDS ORDERED: FURO40 (10:24)
[2024-10-28] MEDS ORDERED: LACT PO (10:24)
[2024-10-28 11:37] VITALS: BP 145/60
--- NOTE | 2024-10-28 12:39 | NUR ---
PATIENT DISCHARGING TO SNF [facility] AT 2PM BEING TRANSPORTED BY [facility]. SISTER VINH LUTHER, CURRENTLY.
--- NOTE | 2024-10-28 14:13 | NUR ---
PATIENT WAS PICKED UP BY [facility]. CALLED [facility] AND GAVE REPORT TO IV REMOVED BY QUILLER OPERATOR WITHOUT COMPLICATIONS. SISTER VINH TOOK BELONGINGS, AND DISCHARGE PACKET SENT WITH TRANSPORT.
== END 2024-10-28 14:13 | DRG 871 ==
LOC: ER 10:09 → PCU 15:22 → MEDS 15:22 → PCU 16:51 → MEDS 10-26 17:43
PROVIDERS: Student in an Organized Health Care Education/Training Program; ADMIT Family Medicine
DX: A41.9 Sepsis, unspecified organism (principal); I21.A1 Myocardial infarction type 2; J69.0 Pneumonitis due to inhalation of food and vomit; I50.31 Acute diastolic (congestive) heart failure; J96.01 Acute respiratory failure with hypoxia; J18.9 Pneumonia, unspecified organism; G81.90 Hemiplegia, unspecified affecting unspecified side; J44.0 Chronic obstructive pulmonary disease with (acute) lower respiratory infection; I48.92 Unspecified atrial flutter; Z66 Do not resuscitate; G51.0 Bell's palsy; I11.0 Hypertensive heart disease with heart failure; I48.0 Paroxysmal atrial fibrillation; J47.9 Bronchiectasis, uncomplicated; G20.A1 Parkinson's disease without dyskinesia, without mention of fluctuations; M19.90 Unspecified osteoarthritis, unspecified site; G89.29 Other chronic pain; M54.9 Dorsalgia, unspecified; H02.401 Unspecified ptosis of right eyelid; I27.20 Pulmonary hypertension, unspecified; I36.1 Nonrheumatic tricuspid (valve) insufficiency; Z85.41 Personal history of malignant neoplasm of cervix uteri; Z98.890 Other specified postprocedural states; Z90.49 Acquired absence of other specified parts of digestive tract; B91 Sequelae of poliomyelitis; Z98.41 Cataract extraction status, right eye
CPT/HCPCS: 0241U; 36415; 51702; 71260; 80048; 80053; 80061; 81001; 82947; 83605; 83880; 84145; 84439; 84443; 84481; 84484; 85025; 85520; 85610; 85730; 87040; 92526; 92610; 93005; 93010; 93306; 94640; 94664; 94760; 96365-59; 97161; 97530; 99285-25; A9270; J0295; J0456; J0696; J1644; J1650; J1938; J7050; Q9967

== ENCOUNTER 2025-02-13 07:10 | Inpatient (IN) | payer MEDICARE, OTHER ==
[~2025-02-13] VITALS: Ht 162.6 cm; Wt 67.3 kg
[~2025-02-13 07:10] MED LIST changes: +ALBU2.5V5 INH; +AMOCLA875 PO; +ARTIFICIAL TEAR15 M7 RIGHTEYE; +ASPI81CH PO; +AZELASTINE137 MCG/01; +CETI5 PO; +CODACE30 PO; +FURO40; +KLAYESTA15 GM TOP; +LACT PO; +LORA10ER PO; +METO25ER PO; +MULVITA PO; +OMEGA-3 KRILL1 EAC3 PO; +POTCHL20ER PO; +PREG75 PO; +Preservision S1 EACH PO; +TRIM100 PO; +VITAMIN D32000 UNI1 PO; +VITAMIN D350 MC3 PO
[2025-02-13] MEDS ORDERED: Levodopa/Carbidopa 100 / 25 MG Tab PO ONE (08:00)
[2025-02-13] MEDS ORDERED: Ketorolac Tromethamine 15mg Vial IV ONE (08:00)
[2025-02-13 08:15] LABS: BASOPHILS ABSOLUTE AUTO 0.04 K/mm3 (0.00-0.23); BASOPHILS PERCENT AUTO 0 % (0-2); EOSINOPHILS ABSOLUTE AUTO 0.02 K/mm3 (0.00-0.68); EOSINOPHILS PERCENT AUTO 0 % (0-6); Hematocrit 33.2 % (33.0-51.0); Hemoglobin 11.3 g/dL (11.5-16.0); IMMATURE GRAN ABSOLUTE AUTO 0.10 K/mm3 (0.00-0.10); IMMATURE GRAN PERCENT AUTO 1 % (0-1); LYMPHOCYTES ABSOLUTE AUTO 1.04 K/mm3 (0.84-5.20); LYMPHOCYTES PERCENT AUTO 7 % (21-46); MONOCYTES ABSOLUTE AUTO 1.01 K/mm3 (0.16-1.47); MONOCYTES PERCENT AUTO 7 % (4-13); Mean Corpuscular HGB Conc 34.0 g/dL (31.5-36.5); Mean Corpuscular Volume 104 fL (80-100); NEUTROPHILS ABSOLUTE AUTO 13.02 K/mm3 (1.96-9.15); NEUTROPHILS PERCENT AUTO 86 % (41-73); NRBC ABSOLUTE 0.00 K/mm3 (0.00-0.02); NRBC Auto 0.0 /100 WBC (0.0-0.2); Platelet Count 257 K/mm3 (150-400); RDW Coefficient Variation 12.5 % (11.7-14.2); RDW Standard Deviation 47.8 fL (35.1-46.3)
[2025-02-13 08:30] LABS: Alanine Aminotransfer (ALT/SGP 9.0 U/L (12-78); Albumin, Blood 3.1 g/dL (3.4-5.0); Albumin/Globulin Ratio 1.0 (0.8-1.8); Anion Gap 9.0 mmol/L (3-11); Aspartate Aminotrans (AST/SGOT 27.0 U/L (12-37); Bilirubin, Total 0.9 mg/dL (0.1-1.0); Blood Urea Nitrogen 17.0 mg/dL (8-24); CO2, Blood 27.0 mmol/L (21-32); Calcium, Blood 8.8 mg/dL (8.5-10.1); Chloride, Blood 105.0 mmol/L (98-108); Creatinine, Blood 0.4 mg/dL (0.40-1.00); Globulin, Blood 3.2 g/dL (2.2-4.0); Glucose, Blood 90.0 mg/dL (70-99); Magnesium, Blood 1.6 mg/dL (1.6-2.4); Potassium, Blood 4.2 mmol/L (3.5-5.5); Sodium, Blood 137.0 mmol/L (136-145); Total Protein, Blood 6.3 g/dL (6.4-8.2)
[2025-02-13] MEDS ORDERED: Ketorolac Tromethamine 30mg Vial IV ONE (08:35)
[2025-02-13 09:03] LABS: Source, Urine Clean Catch
[2025-02-13 09:09] LABS: Bilirubin, Urine Neg (Neg); Color, Urine Yellow (P-Yellow); Glucose Qualitative, Urine Neg (Neg); Ketones, Urine Neg (Neg); Leukocyte Esterase, Urine Neg (Neg); Protein, Urine Neg (Neg); Specific Gravity, Urine 1.015 (1.003-1.022); Urobilinogen, Urine NORM (Normal)
[2025-02-13 09:25] LABS: Influenza A, PCR NEGATIVE (NEGATIVE); Influenza B, PCR NEGATIVE (NEGATIVE); Resp Syncytial Virus, PCR NEGATIVE (NEGATIVE); SARS-Cov-2 (COVID-19) PCR, MMC NEGATIVE (NEGATIVE)
[2025-02-13] MEDS ORDERED: CefTRIAXone Sodium 1,000 MG in NS 100 ML IV ONE (10:20)
[2025-02-13] MEDS ORDERED: Levodopa/Carbidopa 100 / 25 MG Tab PO SCH (13:00)
--- NOTE | 2025-02-13 15:45 | NUR ---
REPORT FROM OMID SIMON IN THE ER. NO QUESTIONS AT THIS TIME.
[2025-02-13 16:11] VITALS: BP 130/48
[2025-02-13] MEDS ORDERED: ESTRADIOL1 EAC2 PO (16:34)
[2025-02-13] MEDS ORDERED: Albuterol 2.5 MG/3 ML VIAL INH PRN (17:15)
[2025-02-13] MEDS ORDERED: Acetaminophen/Codeine 300-30 mg PO PRN (17:15)
--- NOTE | 2025-02-13 17:31 | NUR ---
PATIENT TO ROOM VIA GOURNEY AND ER STAFF. ORIENTED TO ROOM, ADMISSION ASSESSMENT DONE, MED LIST REVIEWED WITH PATIENT, CALL LIGHT WITHIN REACH. BED IN LOW POSITION. NO CONCERNS
[2025-02-13 19:49] VITALS: BP 114/66
[2025-02-13] MEDS ORDERED: Cholecalciferol 1000 Unit Tablet (=25MCG) PO SCH (21:00)
[2025-02-14 00:52] VITALS: BP 122/55
--- NOTE | 2025-02-14 02:50 | NUR ---
PT HAVING INCREASED SOB WITH BILATERAL WHEEZES, TACHYPNEA AND SNORING BREATHING, CALLED RT AND THEY CAME TO DO A HHN TX. HER HR IS AT AFIB IN THE 120'S-130'S. CALLED MD AND INFORMED HIM AND HE CAME DOWN TO SEE THE PT WITH NEW ORDERS. PT STATED THAT SHE WANTS TO BE A DNR AND HER POLST FORM STATES DNR INFORMED MD OF THIS AND HE STATED THAT HE WOULD CHANGE HER POLST FORM.
[2025-02-14] MEDS ORDERED: Metoprolol Tartrate 1 MG/ML 5 ML VIAL IV ONE (03:00)
[2025-02-14] MEDS ORDERED: Magnesium Sulf 2 GM/Water 50ML 50 ML IV ONE (03:15)
[2025-02-14] MEDS ORDERED: NS 250 ML IV PRN (03:35)
[2025-02-14 04:44] VITALS: BP 117/58
[2025-02-14 05:38] LABS: BASOPHILS ABSOLUTE AUTO 0.04 K/mm3 (0.00-0.23); BASOPHILS PERCENT AUTO 0 % (0-2); EOSINOPHILS ABSOLUTE AUTO 0.16 K/mm3 (0.00-0.68); EOSINOPHILS PERCENT AUTO 1 % (0-6); Hematocrit 34.4 % (33.0-51.0); Hemoglobin 11.5 g/dL (11.5-16.0); IMMATURE GRAN ABSOLUTE AUTO 0.08 K/mm3 (0.00-0.10); IMMATURE GRAN PERCENT AUTO 1 % (0-1); LYMPHOCYTES ABSOLUTE AUTO 1.43 K/mm3 (0.84-5.20); LYMPHOCYTES PERCENT AUTO 12 % (21-46); MONOCYTES ABSOLUTE AUTO 0.80 K/mm3 (0.16-1.47); MONOCYTES PERCENT AUTO 7 % (4-13); Mean Corpuscular HGB Conc 33.4 g/dL (31.5-36.5); Mean Corpuscular Volume 107 fL (80-100); NEUTROPHILS ABSOLUTE AUTO 9.56 K/mm3 (1.96-9.15); NEUTROPHILS PERCENT AUTO 79 % (41-73); NRBC ABSOLUTE 0.00 K/mm3 (0.00-0.02); NRBC Auto 0.0 /100 WBC (0.0-0.2); Platelet Count 233 K/mm3 (150-400); RDW Coefficient Variation 12.7 % (11.7-14.2); RDW Standard Deviation 50.0 fL (35.1-46.3)
--- NOTE | 2025-02-14 05:47 | NUR ---
SHIFT SUMMARY PT ALERT ORIENTED X 4 ABLE TO VERBALIZE NEEDS BUT SPEAKS VERY SOFTLY. SHES KEPT TURNED AND REPOSITIONED Q2HR. NO C/O PAIN. REMAINS ON BEDREST. AT START OF SHIFT HER TELEMETRY WAS READING NSR AT 85. THIS MORNING PT STARTED HAVING SOB AND HER TELEMETRY WAS AT AFIB IN THE 130'S-140'S. RESP WERE AT 32-40. SHE WAS HAVING LABORED BREATHING WITH TACHYPNEA AND WHEEZES. CALLED RT AND SHE GOT A HHN TX ALSO CAME AND SEEN HER AND ORDERED MG 2GM IV AND METOPROLOL 5MG IVX1. AT 0545 HER TELEMETRY IS AT AFIB AT 117. HER BREATHING IS MUCH BETTER THIS AM WITH NO C/O SOB AND NO LABORED BREATHING. REMAINS ON ROCEPHIN AND ZITHROMAX ORDERED FOR PNEUMONIA. PUREWICK IS INTACT DRAINING DARK PANCHITO URINE. HER BILAT HEELS ARE RED BUT BLANCHABLE AND BOOTIES ARE ON. SHE HAS BRUISES TO HER FACE FROM A PRIOR SURGERY. REMAINS ON 1L O2 VIA NC. RESTING IN BED AT THIS TIME WITH CALL LIGHT IN REACH
[2025-02-14 06:06] LABS: Anion Gap 6.0 mmol/L (3-11); Blood Urea Nitrogen 18.0 mg/dL (8-24); CO2, Blood 29.0 mmol/L (21-32); Calcium, Blood 9.0 mg/dL (8.5-10.1); Chloride, Blood 107.0 mmol/L (98-108); Creatinine, Blood 0.42 mg/dL (0.40-1.00); Glucose, Blood 98.0 mg/dL (70-99); Potassium, Blood 3.7 mmol/L (3.5-5.5); Sodium, Blood 138.0 mmol/L (136-145)
[2025-02-14 07:22] VITALS: BP 140/68
[2025-02-14] MEDS ORDERED: Enoxaparin 40 MG/0.4 ML SYR SC SCH (09:00)
[2025-02-14] MEDS ORDERED: CefTRIAXone Sodium 1,000 MG in NS 100 ML IV SCH (09:00)
[2025-02-14] MEDS ORDERED: Multivitamins 1 Tab PO SCH (09:00)
[2025-02-14 11:51] VITALS: BP 115/48
--- NOTE | 2025-02-14 16:20 | NUR ---
PATIENT UP THIS AM FOR BREAKFAST, ATE SMALL AMOUNT OF FOOD, OFFERED AN ENSURE DRINK TO SUPPLEMENT EATING AND PATIENT DRANK. PATIENT RESTING AND COUGHING TOLERATED. WHISPERS WHEN SPEAKING, HAS NO CONCERNS. CALL LIGHT WITHIN REACH. BRUISING ON FACE IS POST DERMATOLOGY PROCEDURE TO REMOVE LAYERS OF SKIN THAT WERE A CONCERN,
[2025-02-14 16:52] VITALS: BP 123/52
[2025-02-14 20:38] VITALS: BP 128/58
[2025-02-15 00:25] VITALS: BP 115/46
[2025-02-15 05:26] VITALS: BP 143/59
[2025-02-15] MEDS ORDERED: Levodopa/Carbidopa 100 / 25 MG Tab PO SCH (06:00)
--- NOTE | 2025-02-15 06:37 | NUR ---
SHIFT SUMMARY PT IS ALERT AND ORIENTED TIMES 3-4. PT ADMITTED FOR SEPSIS ACUTE RESPIRATORY FAILURE LEFT LOWER LOBE. PT WAS AFIB BUT HAS SINCE CONVERTED TO SINUS RHYTHM IN 80 S. PT TAKES MEDICATION WHOLE WITH WATER ONE AT A TIME. PT IS ON 1 L O2. PT HAS BELLS PALSEY HX OF COPD, HTN, B-12 DEFICIENCY, PARKINSON'S DISEASE. PT WAS RECEPTIVE TO CARE AND APPEARED TO SLEEP ON AND OFF THROUGH THE NIGHT. CALL LIGHT WITHIN REACH, RAILS TIMES 2, BED IN LOW POSITION.
[2025-02-15 06:48] LABS: BASOPHILS ABSOLUTE AUTO 0.04 K/mm3 (0.00-0.23); BASOPHILS PERCENT AUTO 1 % (0-2); EOSINOPHILS ABSOLUTE AUTO 0.26 K/mm3 (0.00-0.68); EOSINOPHILS PERCENT AUTO 3 % (0-6); Hematocrit 33.7 % (33.0-51.0); Hemoglobin 10.8 g/dL (11.5-16.0); IMMATURE GRAN ABSOLUTE AUTO 0.04 K/mm3 (0.00-0.10); IMMATURE GRAN PERCENT AUTO 1 % (0-1); LYMPHOCYTES ABSOLUTE AUTO 1.33 K/mm3 (0.84-5.20); LYMPHOCYTES PERCENT AUTO 16 % (21-46); MONOCYTES ABSOLUTE AUTO 0.73 K/mm3 (0.16-1.47); MONOCYTES PERCENT AUTO 9 % (4-13); Mean Corpuscular HGB Conc 32.0 g/dL (31.5-36.5); Mean Corpuscular Volume 109 fL (80-100); NEUTROPHILS ABSOLUTE AUTO 6.02 K/mm3 (1.96-9.15); NEUTROPHILS PERCENT AUTO 71 % (41-73); NRBC ABSOLUTE 0.00 K/mm3 (0.00-0.02); NRBC Auto 0.0 /100 WBC (0.0-0.2); Platelet Count 252 K/mm3 (150-400); RDW Coefficient Variation 12.9 % (11.7-14.2); RDW Standard Deviation 51.9 fL (35.1-46.3)
[2025-02-15 07:07] LABS: Anion Gap 8.0 mmol/L (3-11); Blood Urea Nitrogen 21.0 mg/dL (8-24); CO2, Blood 29.0 mmol/L (21-32); Calcium, Blood 9.1 mg/dL (8.5-10.1); Chloride, Blood 106.0 mmol/L (98-108); Creatinine, Blood 0.39 mg/dL (0.40-1.00); Glucose, Blood 101.0 mg/dL (70-99); Potassium, Blood 4.1 mmol/L (3.5-5.5); Sodium, Blood 139.0 mmol/L (136-145)
[2025-02-15 07:09] VITALS: BP 140/56
[2025-02-15 11:31] VITALS: BP 122/46
--- NOTE | 2025-02-15 14:31 | NUR ---
THIS RN GAVE REPORT TO ALFRED DOTSON. MAURI TO ASSUME CARE OF PT.
--- NOTE | 2025-02-15 16:03 | NUR ---
THIS RN TO ASSUME CARE OF PT AT 1431, REPORT RECEIVED FROM ALFRED MORALES.
--- NOTE | 2025-02-15 18:12 | NUR ---
SHIFT SUMMARY SINCE ASSUMPTION OF CARE, PT HAS BEEN AOX4, SOFT SPOKEN BUT ABLE TO MAKE NEEDS KNOWN. REPOSITIONED Q2. MEDICATED FOR PAIN PER THE EMAR. PURWICK IN PLACE AND CHANGED PRIOR TO SHIFT CHANGE. BRIEF CHANGED PRN. PT COOPERATIVE WITH CARE. NO EVENTS PER TELE. CALL LIGHT WITHIN REACH, BED LOCKED AND IN THE LOWEST POSITION. WILL REPORT TO ONCOMING NURSE.
[2025-02-15 19:53] VITALS: BP 135/52
[2025-02-15 23:55] VITALS: BP 153/65
[2025-02-16 04:12] VITALS: BP 155/67
[2025-02-16 06:13] LABS: BASOPHILS ABSOLUTE AUTO 0.03 K/mm3 (0.00-0.23); BASOPHILS PERCENT AUTO 0 % (0-2); EOSINOPHILS ABSOLUTE AUTO 0.08 K/mm3 (0.00-0.68); EOSINOPHILS PERCENT AUTO 1 % (0-6); Hematocrit 35.5 % (33.0-51.0); Hemoglobin 11.3 g/dL (11.5-16.0); IMMATURE GRAN ABSOLUTE AUTO 0.03 K/mm3 (0.00-0.10); IMMATURE GRAN PERCENT AUTO 0 % (0-1); LYMPHOCYTES ABSOLUTE AUTO 0.99 K/mm3 (0.84-5.20); LYMPHOCYTES PERCENT AUTO 14 % (21-46); MONOCYTES ABSOLUTE AUTO 0.66 K/mm3 (0.16-1.47); MONOCYTES PERCENT AUTO 9 % (4-13); Mean Corpuscular HGB Conc 31.8 g/dL (31.5-36.5); Mean Corpuscular Volume 110 fL (80-100); NEUTROPHILS ABSOLUTE AUTO 5.47 K/mm3 (1.96-9.15); NEUTROPHILS PERCENT AUTO 75 % (41-73); NRBC ABSOLUTE 0.00 K/mm3 (0.00-0.02); NRBC Auto 0.0 /100 WBC (0.0-0.2); Platelet Count 277 K/mm3 (150-400); RDW Coefficient Variation 12.6 % (11.7-14.2); RDW Standard Deviation 51.5 fL (35.1-46.3)
[2025-02-16] MEDS ORDERED: Metoprolol Tartrate 1 MG/ML 5 ML VIAL IV ONE (06:15)
--- NOTE | 2025-02-16 06:22 | NUR ---
SHIFT SUMMARY PT IS ALERT AND ORIENTED TIMES 3-4. PT ADMITTED FOR SEPSIS ACUTE RESPIRATORY FAILURE LEFT LOWER LOBE. PT WAS AFIB BUT HAS SINCE CONVERTED TO SINUS RHYTHM IN 80 S. PT HAD LEVADOPA MEDICATION ORDER ADJUSTED PER MED REC DATA. PT TAKES MEDICATION WHOLE WITH WATER ONE AT A TIME. PT IS ON 2 L O2. PT HAS BELLS PALSEY HX OF COPD, HTN, B-12 DEFICIENCY, PARKINSON'S DISEASE. PT WAS RECEPTIVE TO CARE AND APPEARED TO SLEEP ON AND OFF THROUGH THE NIGHT. CALL LIGHT WITHIN REACH, RAILS TIMES 2, BED IN LOW POSITION.
[2025-02-16 06:24] LABS: Anion Gap 7.0 mmol/L (3-11); Blood Urea Nitrogen 21.0 mg/dL (8-24); CO2, Blood 30.0 mmol/L (21-32); Calcium, Blood 9.4 mg/dL (8.5-10.1); Chloride, Blood 104.0 mmol/L (98-108); Creatinine, Blood 0.34 mg/dL (0.40-1.00); Glucose, Blood 119.0 mg/dL (70-99); Potassium, Blood 4.5 mmol/L (3.5-5.5); Sodium, Blood 136.0 mmol/L (136-145)
[2025-02-16 07:11] VITALS: BP 120/65
[2025-02-16 11:36] VITALS: BP 149/71
[2025-02-16 15:27] VITALS: BP 165/89
--- NOTE | 2025-02-16 18:07 | NUR ---
SHIFT SUMMARY PT IS A/OX3-4 PLEASANT AND COOPERATIVE WITH CARE. PT IS SOFT SPOKEN, BUT IS ABLE TO MAKE HER NEEDS KNOWN. PURWICK IS IN PLACE AND CONNECTED TO SUCTION. PT IS ON 3.5L NC. NO ACUTE CHANGES THIS SHIFT. CALL LIGHT IS WITHIN REACH.
[2025-02-16 19:35] VITALS: BP 170/77
[2025-02-16 23:55] VITALS: BP 166/74
[2025-02-17] MEDS ORDERED: FentaNYL Citrate 50 MCG/ML 2 ML Injection IV PRN (00:40)
--- NOTE | 2025-02-17 00:40 | NUR ---
PATIENT DESATING ON 3 LPM NASAL CANNULA, TURNED UP TO 5 AND SPO2 INCREASED TO 94%. ORALLY SUCTIONED AND GOT NOTHING. GAVE ALBUTEROL NEBULIZER TREATMENT WITH NO CHANGE. PATIENT IS MOUTH BREATHING, O2IS NOW @ TO 6 LPM FOR 94% WITH OXYMASK. RN WILL CALL DOCTOR, PATIENT IS A DNR.
[2025-02-17] MEDS ORDERED: Atropine Sulfate 1% Opth Soln 2ML BTL SL PRN (01:15)
[2025-02-17 04:36] LABS: BASOPHILS ABSOLUTE AUTO 0.04 K/mm3 (0.00-0.23); BASOPHILS PERCENT AUTO 1 % (0-2); EOSINOPHILS ABSOLUTE AUTO 0.09 K/mm3 (0.00-0.68); EOSINOPHILS PERCENT AUTO 2 % (0-6); Hematocrit 35.1 % (33.0-51.0); Hemoglobin 11.3 g/dL (11.5-16.0); IMMATURE GRAN ABSOLUTE AUTO 0.02 K/mm3 (0.00-0.10); IMMATURE GRAN PERCENT AUTO 0 % (0-1); LYMPHOCYTES ABSOLUTE AUTO 1.14 K/mm3 (0.84-5.20); LYMPHOCYTES PERCENT AUTO 19 % (21-46); MONOCYTES ABSOLUTE AUTO 0.75 K/mm3 (0.16-1.47); MONOCYTES PERCENT AUTO 13 % (4-13); Mean Corpuscular HGB Conc 32.2 g/dL (31.5-36.5); Mean Corpuscular Volume 109 fL (80-100); NEUTROPHILS ABSOLUTE AUTO 3.86 K/mm3 (1.96-9.15); NEUTROPHILS PERCENT AUTO 66 % (41-73); NRBC ABSOLUTE 0.00 K/mm3 (0.00-0.02); NRBC Auto 0.0 /100 WBC (0.0-0.2); Platelet Count 281 K/mm3 (150-400); RDW Coefficient Variation 12.2 % (11.7-14.2); RDW Standard Deviation 49.4 fL (35.1-46.3)
[2025-02-17 05:05] LABS: Anion Gap 4.0 mmol/L (3-11); Blood Urea Nitrogen 20.0 mg/dL (8-24); CO2, Blood 33.0 mmol/L (21-32); Calcium, Blood 9.3 mg/dL (8.5-10.1); Chloride, Blood 104.0 mmol/L (98-108); Creatinine, Blood 0.38 mg/dL (0.40-1.00); Glucose, Blood 107.0 mg/dL (70-99); Potassium, Blood 4.4 mmol/L (3.5-5.5); Sodium, Blood 137.0 mmol/L (136-145)
--- NOTE | 2025-02-17 05:25 | NUR ---
PER TELEPHONE MECHANIC. HOLD ORAL MEDICATION AT THIS TIME DUE TO HIGH RISK OF ASPIRATION. PALATIVE CONSULT ORDER OPBTAINED.
[2025-02-17 09:42] VITALS: BP 163/99
[2025-02-17] MEDS ORDERED: Piperacillin/Tazobactam Sod 2.25 GM in NS 50 ML IV SCH (12:00)
[2025-02-17 16:02] VITALS: BP 153/74
--- NOTE | 2025-02-17 17:12 | NUR ---
ASSUMED CARE PT IS A/O X 3-4 IS SLOW TO SPEAK AND VERY SOFT SPOKEN BUT IS ABLE TO MAKE NEEDS MET/KNOWN. SISTER AT BEDSIDE TO HELP WITH CARE. CURRENTLY NPO UNTIL SPEECH COMES TO ASSESS PT. MESSAGE LEFT PALLIATIVE CARE TO COME SEE PT ABOUT GOALS OF CARE. PT IS TACHYPENIC AND NOT FEELING WELL C/O PAIN TO BACK, PT MEDICATED PER MAR. AND REPOSITIONED. WILL CONT TO MONITOR.
--- NOTE | 2025-02-17 17:18 | NUR ---
PALLIATIVE CARE/ DR VIDES IN WITH PT AND FAMILY TO DISCUSS GOALS OF CARE. PT CONT TO BE DNR, AND GOING TO CHANGE ANTIBIOTIC TO SEE IF CHANGE IN PT CONDITION ACCURE.
--- NOTE | 2025-02-17 17:18 | NUR ---
TEMP 100.6 AND PT MEDICATED WITH TYLENOL
--- NOTE | 2025-02-17 17:20 | NUR ---
PALLIATIVE FOLLOW UP AT 1400 02/18
[2025-02-17 19:52] VITALS: BP 139/66
--- NOTE | 2025-02-17 19:53 | NUR ---
GOALS OF CARE MEETING WITH FAMILY TOMORROW 02/18 @ 1400.
--- NOTE | 2025-02-17 21:16 | NUR ---
PT AT RISK FOR ASPIRATION PER RESPIRATORY LEFT LUNG SOUNDS WHEEZE WET PT HARD TO AROUSE RESPONDS TO VERBAL STIMULI OPENS EYES DIFFICULTY SWALLOWING PROVIDER NOTIFIED HOLD PO MEDICATIONS FOR NOW
--- NOTE | 2025-02-17 22:34 | NUR ---
CALL TO SISTER VINH FOR UPDATE ON PT. PT CURRENTLY APPEARS TO BE AGONAL BREATHING AND APPEARS TO BE CYANOTIC. DISCUSSED WE HAVE BEEN REPOSITIONING FOR COMFORT AND MEDICATING PER ORDERS NEEDED FOR COMFORT WELL. VINH STATES SHE IS THANKFUL FOR THAT. INFORMED HER MEDS HAD TO BE HELD THIS EVENING DUE TO PT LETHARGY AND WORRY FOR ASPIRATION. VINH V/U. ENCOURAGED FAMILY TO COME SEE HER IF THEY WOULD LIKE AND VINH STATES SHE PROBABLY WILL.
[2025-02-17 23:59] VITALS: BP 134/86
[2025-02-18] VITALS (8 sets, daily range): BP systolic 123–148; BP diastolic 66–92
--- NOTE | 2025-02-18 00:19 | NUR ---
RECEIVED CALL FROM [employer] THAT PT IS TACHYCARDIC. ASSESSED PT AND PT ABLE TO SHAKE HEAD AND MOUTH SHE HAS NO CHEST PAIN. PT DOES NOT APPEAR TO BE SYMPTOMATIC UPON ASSESSMENT. HR BOUNCING BETWEEN LOW 100'S AND 140'S. DISCUSSED WITH STEAM TURBINE ASSEMBLER'S AND CONTINUE TO MONITOR AT THIS TIME.
[2025-02-18] MEDS ORDERED: Metoprolol Tartrate 1 MG/ML 5 ML VIAL IV ONE ×2 (00:45→07:55)
--- NOTE | 2025-02-18 00:47 | NUR ---
RECEIVED ANOTHER CALL FROM [employer] THAT PT IS IN AFIB AND SUSTAINING IN 130'S. DR. FLOWER CALLED AND VERBAL ORDERS RECEIVED TO GIVE A 1 TIME DOSE OF LOPRESSOR 5 MG VIA IV.
[2025-02-18] MEDS ORDERED: Diltiazem HCl 5 MG / ML 5ML Vial IV ONE (04:05)
--- NOTE | 2025-02-18 04:07 | NUR ---
CALL TO DOCTOR DUE TO PT REMAINING IN A-FIB WITH HR ELEVATED BETWEEN 120-130'S. RECEIVED TELEPHONE ORDER TO GIVE 10 MG CARDIZEM VIA IV NOW. PT DENIES CHEST PAIN OR PRESSURE.
[2025-02-18 04:51] LABS: BASOPHILS ABSOLUTE AUTO 0.07 K/mm3 (0.00-0.23); BASOPHILS PERCENT AUTO 1 % (0-2); EOSINOPHILS ABSOLUTE AUTO 0.27 K/mm3 (0.00-0.68); EOSINOPHILS PERCENT AUTO 3 % (0-6); Hematocrit 37.5 % (33.0-51.0); Hemoglobin 12.3 g/dL (11.5-16.0); IMMATURE GRAN ABSOLUTE AUTO 0.05 K/mm3 (0.00-0.10); IMMATURE GRAN PERCENT AUTO 1 % (0-1); LYMPHOCYTES ABSOLUTE AUTO 1.48 K/mm3 (0.84-5.20); LYMPHOCYTES PERCENT AUTO 19 % (21-46); MONOCYTES ABSOLUTE AUTO 0.85 K/mm3 (0.16-1.47); MONOCYTES PERCENT AUTO 11 % (4-13); Mean Corpuscular HGB Conc 32.8 g/dL (31.5-36.5); Mean Corpuscular Volume 108 fL (80-100); NEUTROPHILS ABSOLUTE AUTO 5.14 K/mm3 (1.96-9.15); NEUTROPHILS PERCENT AUTO 66 % (41-73); NRBC ABSOLUTE 0.00 K/mm3 (0.00-0.02); NRBC Auto 0.0 /100 WBC (0.0-0.2); Platelet Count 315 K/mm3 (150-400); RDW Coefficient Variation 11.9 % (11.7-14.2); RDW Standard Deviation 47.2 fL (35.1-46.3)
[2025-02-18 05:13] LABS: Anion Gap 7.0 mmol/L (3-11); Blood Urea Nitrogen 17.0 mg/dL (8-24); CO2, Blood 32.0 mmol/L (21-32); Calcium, Blood 9.5 mg/dL (8.5-10.1); Chloride, Blood 103.0 mmol/L (98-108); Creatinine, Blood 0.39 mg/dL (0.40-1.00); Glucose, Blood 69.0 mg/dL (70-99); Potassium, Blood 4.0 mmol/L (3.5-5.5); Sodium, Blood 138.0 mmol/L (136-145)
--- NOTE | 2025-02-18 07:13 | NUR ---
SHIFT SUMMARY A&OX1 TO SELF. ABLE TO STATE HER AT START OF SHIFT. PT VERY LETHARGIC AT START OF SHIFT AND MUMBLING AND VERY DIFFICULT TO UNDERSTAND. PT BECAME CYANOTIC DURING SHIFT AND WAS AGONAL, SHALLOW BREATHING. LUNG SOUNDS WERE VERY WET AND ATROPINE DROPS WERE GIVEN FOR ORAL SECRETIONS PER EMAR. THIS APPEARED TO HELP WITH THE SECRETIONS. PT ON TELE AND RECEIVED NOTIFICATION OF PT TRANSITIONING INTO AFIB. DOCTOR CALLED AND LOPRESSOR GIVEN WITH SOME DECREASE IN PULSE RATE. PULSE INCREASED AGAIN THROUGHOUT SHIFT AND DOCTOR CALLED AGAIN AND RECEIVED ORDERS TO DO A BLADDER SCAN TO MAKE SURE PT NOT RETAINING. BLADDER SCAN PERFORMED AND SHOWED <300 MLS AND PUREWICK APPEARS TO BE WORKING. LOWER ABD PALPATED AND SOFT. GIVE CARDIZEM WITH GOOD RESULTS. PER DOCTOR HOLD ON DOING ANYTHING FURTHER UNTIL PT CAN MEET WITH PALLIATIVE CARE ORDERED. THROUGHOUT SHIFT THE PT STARTED HALLUCINATING AND TALKING TO PEOPLE THAT WEREN'T THERE AND PICKING AT THINGS THAT WEREN'T THERE. PT REMAINED PLEASANT AND APPEARED COMFORTABLE. PT CURRENTLY SITTING UP IN BED IN LOWEST POSITING WITH RAILS X2 AND CALL LIGHT WITHIN REACH. REPORT GIVEN TO DAY SHIFT NURSE.
--- NOTE | 2025-02-18 09:24 | NUR ---
ASSUMED CARE PT MUCH MORE WAKE, WITH SOME CONFUSION, PT STATED SHE WAS FEELING BITCHY TODAY AND THAT WE ARE NOT HONORING HER WISHES TO RECEIVE HER ORAL MEDICATIONS. I TRIED TO EXPLAIN THAT SHE WAS POSSIBLY ASPIRATING AND PT STATED SHE DID NOT CARE AND WANTED HER TYLENOL #3 NOW. MEDICATION WAS GIVEN. PT HAD SOME DIFFICULTY SWALLOWING BUT WAS ABLE TO EVENTUALLY SWALLOW PILL. WILL CONT TO MONITOR. HR IN THE 150S, NOTIFIED 5MG LOPRESSOR IV GIVEN. MONITOR AFIB AND IS NOW CONTROLLED
--- NOTE | 2025-02-18 16:13 | NUR ---
pt cont to do well, vss heart rate is now SR with PAC 90-110. family at bedside. palliative are meeting in progress. pt has cont to hallucinate throughout the day. pt has been speaking with a little girl in trhe corner of the room that is not there. Dr Collado is aware and deems it possible hospital psychosis
--- NOTE | 2025-02-18 18:46 | NUR ---
FAMILY GOC MEETING THIS AFTERNOON. MET IN ROOM WITH PT, SISTER, BROTHER AND SISTER IN-LAW. PT IS ALERT. ORIENTED TO SELF AND FAMILY. FAMILY WOULD LIKE FOR PT TO CONTINUE WITH ABX TX WHILE IN THE HOSPITAL THEN START HOSPICE SERVICES ON DISCHARGE. PT LIVES AT [facility]. [facility] DOES NOT HAVE AN RN ON THE WEEKEND TO ACCEPT PT BACK. THEY WILL HAVE AN RN AVAILABLE ON WEDNESDAY, AFTER THE HOLIDAY. FAMILY IS AWARE PT WILL REMAIN HERE UNTIL THEN. IF PT'S CONDITION DECLINES FURTHER DURING THIS STAY, GOALS MAY NEED TO BE REVISITED. CM, BEDSIDE RN, SHIPPING/RECEIVING CLERK AND PROVIDER UPDATED. PC TO REMAIN AVAILABLE NEEDED.
--- NOTE | 2025-02-18 19:15 | NUR ---
no change pt cont to be cooperative, is still hallucinating but responding appropriatly.
--- NOTE | 2025-02-18 21:29 | NUR ---
NURSING NOTE: PT'S SON CALLED STATING THAT HE HAD NOT BEEN INFORMED OF HER HOSPITALIZATION. PER CORPORATE CONTROLLER NOTES, PT'S SISTER STATED THAT SHE WAS MEDICAL POA. HOWEVER, PER THE CHART AND PER SON, HE IS BOTH MEDICAL AND FINANCIAL POA. SON REQUESTS COMFORT CARE PER GOALS OF CARE HE HAS SET UP WITH PT AFTER HEARING ABOUT HER CURRENT CONDITION. PROVIDER AND CHARGE NOTIFIED OF THE SITUATION, PROVIDER CALLING TO HAVE DISCUSSION WITH SON. CONTINUING CARE.
[2025-02-18] MEDS ORDERED: LORazepam 2 MG/ML 1ML Injection IV PRN (21:40)
[2025-02-19] MEDS ORDERED: Diltiazem HCl 5 MG / ML 5ML Vial IV ONE ×2 (00:55→04:10)
[2025-02-19 01:21] VITALS: BP 153/66
--- NOTE | 2025-02-19 01:44 | NUR ---
NURSING NOTE: PT BECAME LESS ARROUSABLE, HR SPIKING 170 AND HOVERING IN THE 140S. RESP IN THE 40'S. PT DIAPHORETIC. PROVIDER NOTIFIED. 10MG CARDIZEM IV ORDERED. HR DOWN TO THE 110S - 120S. BP STRONG, BUT RESP STILL ELEVATED WITH GURGLING. PT BROW FURLED AND GRIPPING LINENS. PAIN MEDICATION GIVEN PER EMR. PT DESATTING TO THE MID 80S, OXYMASK PUT ON AND TURNED UP TO 4L. CBG CHECKED AND WAS NORMAL. PT SEEMS MORE COMFORTABLE, STILL LABORED BREATHING. CONTINUING CARE.
[2025-02-19] MEDS ORDERED: Morphine Sulfate 4 MG/1 ML Injection IV PRN (02:00)
[2025-02-19 02:31] VITALS: BP 145/60
--- NOTE | 2025-02-19 02:46 | NUR ---
NURSING NOTE: PT DECOMPENSATING PRETTY SIGNIFICANTLY. SATS DROPPING TO LOW 80S, RESPIRATORY CALLED, MORPHINE GIVEN FOR PAIN AND ATIVAN FOR COMFORT. PT ON OXYMASK UP TO 15L, MADE COMFORTABLE POSSIBLE. SISTER NOTIFIED OF IMMINENCE. UNSUCCESSFUL IN CONTACTING SON. CHARGE NURSE NOTIFIED. PT IN BED, BED IN LOWEST POSITION. CONTINUING CARE.
[2025-02-19 04:30] VITALS: BP 119/58
--- NOTE | 2025-02-19 05:32 | NUR ---
SHIFT SUMMARY: PT STARTED AOX1-2 KNEW WHO SOME FAMILY WAS AND WHO SHE WAS. KNEW SHE WAS IN [place] BUT COULDNT TELL ME WHY OR WHAT BUILDING. PT SPOKE WORD SALAD BUT COULD COMMUNICATE APPROPRIATELY IN SHORT BURSTS. SON CALLED CLAIMING THAT HE IS MEDICAL POA DESPITE WHAT PTS SISTER STATED TO CASE MANAGEMENMT. PROVIDER WAS NOTIFIED AND HE SPOKE WITH THE SON ABOUT GOALS OF CARE. SEE NURSING NOTE FOR MORE DETAILS. PT HEART RATE CONTINUED TO BOUNCE FROM 130-160'S. PROVIDER NOTIFIED IV CARDIZEM GIVEN TWICE THIS PM PER EMR. PT HAD EPISODE OF RAPID DESATTING TO THE LOW 80S ON THE 3L NC. OXY MASK PUT ON AND UP TO 15L PER RESPIRATORY. PT BECAME UN RESPONSIVE AND BREATHING INCREDIBLY LABORED AND FAST. PROVIDER NOTIFIED AND IV MORPHINE GIVEN. PT TOLERATED WELL, IS BACK DOWN TO 4L ON THE OXY MASK SATTING 94. PT SEEMS MUCH MORE COMFORTABLE ALTHOUGH IS STILL NOT AROUSABLE. PT HAS HAD LITTLE OUTPUT, ALTHOUGH ALSO VERY LITTLE INPUT. NOT ALERT ENOUGH OR FOLLOWING COMMANDS ENOUGH TO TAKE PO MEDICATIONS EFFECTIVELY. PT TOLERATING MEDICATIONS GIVEN WELL, PT IN BED RESTING, BED IN LOWEST POSITION, CALL LIGHT IN REACH. CONTINUING CARE.
[2025-02-19] MEDS ORDERED: NS 50 ML IV ONE (05:43)
[2025-02-19 06:54] LABS: BASOPHILS ABSOLUTE AUTO 0.04 K/mm3 (0.00-0.23); BASOPHILS PERCENT AUTO 1 % (0-2); EOSINOPHILS ABSOLUTE AUTO 0.01 K/mm3 (0.00-0.68); EOSINOPHILS PERCENT AUTO 0 % (0-6); Hematocrit 39.3 % (33.0-51.0); Hemoglobin 12.4 g/dL (11.5-16.0); IMMATURE GRAN ABSOLUTE AUTO 0.06 K/mm3 (0.00-0.10); IMMATURE GRAN PERCENT AUTO 1 % (0-1); LYMPHOCYTES ABSOLUTE AUTO 0.87 K/mm3 (0.84-5.20); LYMPHOCYTES PERCENT AUTO 11 % (21-46); MONOCYTES ABSOLUTE AUTO 0.75 K/mm3 (0.16-1.47); MONOCYTES PERCENT AUTO 10 % (4-13); Mean Corpuscular HGB Conc 31.6 g/dL (31.5-36.5); Mean Corpuscular Volume 110 fL (80-100); NEUTROPHILS ABSOLUTE AUTO 6.00 K/mm3 (1.96-9.15); NEUTROPHILS PERCENT AUTO 78 % (41-73); NRBC ABSOLUTE 0.00 K/mm3 (0.00-0.02); NRBC Auto 0.0 /100 WBC (0.0-0.2); Platelet Count 381 K/mm3 (150-400); RDW Coefficient Variation 11.9 % (11.7-14.2); RDW Standard Deviation 49.4 fL (35.1-46.3)
[2025-02-19 07:25] LABS: Anion Gap 6.0 mmol/L (3-11); Blood Urea Nitrogen 25.0 mg/dL (8-24); CO2, Blood 32.0 mmol/L (21-32); Calcium, Blood 9.4 mg/dL (8.5-10.1); Chloride, Blood 103.0 mmol/L (98-108); Creatinine, Blood 0.5 mg/dL (0.40-1.00); Glucose, Blood 93.0 mg/dL (70-99); Potassium, Blood 3.9 mmol/L (3.5-5.5); Sodium, Blood 137.0 mmol/L (136-145)
[2025-02-19] MEDS ORDERED: Morphine Sulfate 20 MG/1ML 1 ML Oral Syringe SL PRN (09:20)
[2025-02-19] MEDS ORDERED: Ondansetron HCl 2 MG / ML 2ML Vial IV PRN (09:20)
--- NOTE | 2025-02-19 09:24 | NUR ---
NOTIFIED BY BEDSIDE RN, ERIBERTO HAD A CHANGE IN CONDITION LAST NIGHT WITH CARDIAC AND RESPIRATORY SUPPORT NEEDED. PREVIOUS PLAN WAS TO D/C HOME TO [place] [facility]. AFTER SPEAKING WITH STEP NIXON JONES, BROTHER ARTUR AND SISTER VINH, ALL THREE ARE IN AGREEMENT TO START COMFORT CARE NOW. VERBAL ORDERS RCV'D FROM PROVIDER AND PLACED ACCORDINGLY. BEDSIDE RN, CLAIM TAKER AND CM UPDATED WITH CHANGES. PC TO REMAIN AVAILABLE NEEDED. FAMILY CONTACT INFO: ROBERT OBRIEN [phone] BROTHERARTUR [phone] SISTERVINH ANTONIA [phone] NO POA PAPERWORK ON FILE.
[2025-02-19] MEDS ORDERED: Piperacillin/Tazobactam Sod 3.375 GM in NS 100 ML IV SCH (12:00)
--- NOTE | 2025-02-19 12:02 | NUR ---
ASSUMED CARE PT NOT RESPONDING TODAY, RESPIRATORY RATE IS 32RPM, FAMILY IS AWARE THAT PT MAYBE TRANSITIONING INTO PALLIATIVE CARE. PALLIATIVE TEAM NOTIFIED AND THEY WERE ABLE TO CONTACT SON ROBERT, ALSO REMAINDER OF THE FAMILY. FAMILY IS CURRENTLY AT BEDSIDE. PT MEDICATED FOR DISTRESS, TELE REMOVED.
--- NOTE | 2025-02-19 18:29 | NUR ---
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 FAMILY WAS AT BEDSIDE UNTIL 1500. PT CONT RESPIRATORY RATE AT 30
--- NOTE | 2025-02-20 05:02 | NUR ---
SHIFT SUMMARY: PT AOX0, COMFORT CARE, NOT AROUSABLE. Q2 TURNS AND CHANGED ONCE. STARTED WITH 10MG ROXONOL NEEDED, HAVE UPPED TO 20MG ALMOST Q1 DUE TO LABORED BREATHING AND GASPING. PT SOUNDS WET ON AUSCULTATION, BUT NOT AUDIBLY. PT APPEARS MUCH MORE COMFORTABLE THAN PREVIOUS NIGHT. PT IN BED SLEEPING, BED IN LOWEST POSITION, CALL LIGHT IN REACH. CONTINUING CARE
--- NOTE | 2025-02-20 05:49 | NUR ---
FINAL DISCHARGE: TOD: 0547, CONFIRMED WITH CHARGE. WENT TO CHECK ON PT, AGONAL BREATHING SOME STRUGGLING AND GASPING. PULLED ROXANOL AND RETURNED TO ROOM AND PT HAD STOPPED BREATHING. AUSCULTATED HEART SOUNDS AND COULD NOT HEAR ANY, CHECKED PUPILS, DIALATED AND NONRESPONSIVE. FAMILY CALLED AND NOTIFIED. HOME WILL BE PROVIDED BY FAMILY WHEN THEY COME TO SEE HER. CONTINUING CARE.
== END 2025-02-20 09:20 | DRG 871 ==
LOC: ER 07:10 → EDBEDREQ 16:02 → MEDS 16:04
PROVIDERS: Student in an Organized Health Care Education/Training Program; ADMIT Internal Medicine
PROC: 3E03329 Introduction of Other Anti-infective into Peripheral Vein, Percutaneous Approach (ICD-10-PCS; principal; 2025-02-13)
PROC: 0T9B70Z Drainage of Bladder with Drainage Device, Via Natural or Artificial Opening (ICD-10-PCS; 2025-02-19)
DX: A41.9 Sepsis, unspecified organism (principal); J18.9 Pneumonia, unspecified organism; J96.01 Acute respiratory failure with hypoxia; I50.32 Chronic diastolic (congestive) heart failure; Z51.5 Encounter for palliative care; Z66 Do not resuscitate; R65.20 Severe sepsis without septic shock; I48.0 Paroxysmal atrial fibrillation; G20.A1 Parkinson's disease without dyskinesia, without mention of fluctuations; I11.0 Hypertensive heart disease with heart failure; G51.0 Bell's palsy; J44.9 Chronic obstructive pulmonary disease, unspecified; D64.9 Anemia, unspecified; R41.0 Disorientation, unspecified; Z79.82 Long term (current) use of aspirin; Z85.41 Personal history of malignant neoplasm of cervix uteri; Z87.891 Personal history of nicotine dependence; Z90.49 Acquired absence of other specified parts of digestive tract
CPT/HCPCS: 36415; 71045; 80048; 80053; 81003; 82947; 83605; 83735; 83880; 84145; 85025; 87637; 92610; 93005; 93010; 94640; 94760; 94762; 96365; 96375; 97110; 97162; 99285-25; A6590; A9270; J0456; J0696; J1650; J1885; J2060; J2270; J2543; J3010; J3475; J7050